=== PATIENT | male | born 1975 | race Caucasian/White ===

== ENCOUNTER 2016-12-18 10:22 | Inpatient (IN) | payer OTHER ==
[2016-12-18 11:43] VITALS: BMI 24.7
--- NOTE | 2016-12-18 13:40 | HP ---
CIWA Score - CIWA Score Nausea/Vomitin Muscle Tremors: 4-Moderate,w/Arms Extend Anxiety: 3 Agitation: 4-Moderately Restless Paroxysmal Sweats: No Perspiration Orientation: 0-Oriented Tacttile Disturbances: 0-None Auditory Disturbances: 0-None Visual Disturbances: 0-None Headache: 2-Mild CIWA-Ar Total Score: 15 Admission ROS BHS - HPI Chief Complaint: I need help with my drinking. Allergies/Adverse Reactions: Allergies Allergy/AdvReac Type Severity Reaction Status Date / Time No Known Allergies Allergy Verified 12/18/16 13:00 History of Present Illness: pt is a 41yr old male with a history of alcohol dependence seeking detox for treatment. Exam Limitations: Language Barrier (can understand little icelandic and can manage ) - Ebola screening Have you traveled outside of the country in the last 21 days: No Have you had contact with anyone from an Ebola affected area: No Have you been sick,other than usual withdrawal symptoms: No Do you have a fever: No - Review of Systems Constitutional: Chills, Diaphoresis, Loss of Appetite, Night Sweats EENT: reports: No Symptoms Reported Respiratory: reports: No Symptoms reported Cardiac: reports: Lightheadedness GI: reports: Nausea, Poor Appetite, Poor Fluid Intake : reports: No Symptoms Reported Musculoskeletal: reports: No Symptoms Reported Integumentary: reports: Flushing, Sweating Neuro: reports: Headache, Tingling, Tremors Endocrine: reports: Excessive Sweating, Flushing, Intolerance to Cold, Intolerance to Heat Hematology: reports: No Symptoms Reported Psychiatric: reports: Judgement Intact, Mood/Affect Appropiate, Orientated x3, Agitated, Anxious Other Systems: Reviewed and Negative Patient History - Patient Medical History Hx Anemia: No Hx Asthma: No Hx Chronic Obstructive Pulmonary Disease (COPD): No Hx Cancer: No Hx Cardiac Disorders: No Hx Congestive Heart Failure: No Hx Hypertension: No Hx Hypercholesterolemia: No Hx Pacemaker: No HX Cerebrovascular Accident: No Hx Seizures: No Hx Dementia: No Hx Diabetes: No Hx Gastrointestinal Disorders: No Hx Liver Disease: No Hx Genitourinary Disorders: No Hx Sexually Transmitted Disorders: No Hx Renal Disease (ESRD): No Hx Thyroid Disease: No Hx Human Immunodeficiency Virus (HIV): No (NEGATIVE HX) Hx Hepatitis C: No Hx Depression: No Hx Suicide Attempt: No (denies) Hx Bipolar Disorder: No Hx Schizophrenia: No - Patient Surgical History Past Surgical History: Yes Hx Neurologic Surgery: No Hx Cataract Extraction: No Hx Cardiac Surgery: No Hx Lung Surgery: No Hx Breast Surgery: No Hx Breast Biopsy: No Hx Abdominal Surgery: No Hx Appendectomy: No Hx Cholecystectomy: No Hx Genitourinary Surgery: No Hx Section: No Hx Orthopedic Surgery: No Other Surgical History: removal of cyst, back of neck - PPD History Previous Implant?: Yes Documented Results: Negative w/proof Implanted On Prior [facility] Admission?: Yes Date: 01/20/16 Results: 0 mm PPD to be Administered?: No - Reproductive History Patient is a Female of Child Bearing Age (11 -55 yrs old): No - Smoking Cessation Smoking history: Current every day smoker Have you smoked in the past 12 months: Yes Aproximately how many cigarettes per day: 20 Hx Chewing Tobacco Use: No Initiated information on smoking cessation: Yes 'Breaking Loose' booklet given: 12/18/16 - Substance & Tx. History Hx Alcohol Use: Yes Substance Use Type: Alcohol Hx Substance Use Treatment: Yes - Substances Abused Alcohol-beer Route: Inhalation Frequency: Daily Amount used: 2-6 pks. Age of first use: 20 Date of Last Use: 12/18/16 Family Disease History - Family Disease History Family History: Denies Admission Physical Exam [facility] - Vital Signs Vital Signs: Vital Signs - 24 hr 12/18/16 11:40 Temperature 98.6 F Pulse Rate 102 H Respiratory 18 Rate Blood Pressure 152/88 - Physical General Appearance: Yes: Appropriately Dressed, Moderate Distress, Tremorous, Irritable, Sweating, Anxious HEENTM: Yes: Hearing grossly Normal, Nasal Congestion Respiratory: Yes: Lungs Clear, Normal Breath Sounds, No Respiratory Distress Neck: Yes: No masses,lesions,Nodules Breast: Yes: Within Normal Limits Cardiology: Yes: Regular Rhythm, Regular Rate, S1, S2 Abdominal: Yes: Normal Bowel Sounds, Non Tender, Soft Genitourinary: Yes: Within Normal Limits Back: Yes: Normal Inspection Musculoskeletal: Yes: Within Normal Limits Extremities: Yes: Normal Capillary Refill Neurological: Yes: Fully Oriented, Alert, Normal Response Integumentary: Yes: Diaphoresis Lymphatic: Yes: Within Normal Limits - Diagnostic (1) Alcohol dependence with uncomplicated withdrawal Current Visit: Yes Status: Chronic Cleared for Admission [facility] - Detox or Rehab [facility] Level of Care: Medically Managed Detox Regimen/Protocol: Librium [facility] Breath Alcohol Content Breath Alcohol Content: 0.228 Urine Drug Screen - Results Drug Screen Negative: Yes
[2016-12-18] MEDS ORDERED: P-EPHED 60MG/TRIPROLIDI 2.5MG TABLET PO PRN (13:42)
[2016-12-18] MEDS ORDERED: ACETAMINOPHEN 325 MG TABLET (FP) PO PRN (13:42)
[2016-12-18] MEDS ORDERED: NICOTINE POLACRILEX 4 MG GUM BC PRN (13:42)
[2016-12-18] MEDS ORDERED: MENTHOL/PHENOL 1 EACH UD MM PRN (13:42)
[2016-12-18] MEDS ORDERED: MAG HYDROX/AL HYDROX/SIMETH 30 ML UNIT-DOSE CUP PO PRN (13:42)
[2016-12-18] MEDS ORDERED: IBUPROFEN 400 MG TABLET (FP) PO PRN (13:42)
[2016-12-18] MEDS ORDERED: MAGNESIUM CITRATE 300 ML BOTTLE PO PRN (13:42)
[2016-12-18] MEDS ORDERED: MAGNESIUM HYDROX 2400MG/30ML ORAL SUSPENSION 30 ML CUP PO PRN (13:42)
[2016-12-18] MEDS ORDERED: guaiFENesin/D-METHORPHAN HB 10 ML UNIT-DOSE CUPS PO PRN (13:42)
[2016-12-18] MEDS ORDERED: LOPERAMIDE HCL 2 MG CAPSULE PO PRN (13:42)
[2016-12-18] MEDS ORDERED: chlordiazePOXIDE HCL 25 MG CAPSULE PO ONE (14:30)
[2016-12-18] MEDS: chlordiazePOXIDE HCL 25 MG CAPSULE PO SCH ×2 (17:35→22:20)
[2016-12-18 21:13] LABS: URINE APPEARANCE CLEAR; URINE BILIRUBIN NEGATIVE (NEGATIVE); URINE COLOR YELLOW; URINE GLUCOSE (UA) NEGATIVE (NEGATIVE); URINE KETONE TRACE (NEGATIVE); URINE LEUK ESTERASE NEGATIVE (NEGATIVE); URINE NITRITE NEGATIVE (NEGATIVE); URINE PROTEIN NEGATIVE (NEGATIVE); URINE UROBILINOGEN NEGATIVE E.U./dl (0.2-1.0)
[2016-12-18 21:36] LABS: URINE BLOOD 1+ (NEGATIVE)
[2016-12-18 21:39] LABS: URINE MUCUS RARE; URINE RBC <1 /hpf (0-3)
[2016-12-18] MEDS: THIAMINE HCL 100 MG TABLET (FP) PO SCH (22:21)
[2016-12-18] MEDS: diphenhydrAMINE HCL 50 MG CAPSULE PO PRN (22:21)
[2016-12-19] MEDS: chlordiazePOXIDE HCL 25 MG CAPSULE PO SCH ×4 (04:10→22:26)
[2016-12-19] MEDS: hydrOXYzine PAMOATE 50 MG CAPSULE (FP) PO PRN ×2 (05:57→14:21)
[2016-12-19 10:11] LABS: MCH 30.4 pg (25.7-33.7); MCHC 34.2 g/dl (32.0-35.9); MEAN CELL VOLUME 88.9 fl (80-96); PLATELET COUNT 152 K/MM3 (134-434); RDW 13.9 % (11.9-15.9); WHITE BLOOD COUNT 10.2 K/mm3 (4.0-10.0)
[2016-12-19] MEDS: PRENATAL VITAMINS W/ FOLIC ACID TABLET (FP) PO SCH (10:37)
[2016-12-19] MEDS: NICOTINE 21 MG/24 HOURS TOPICAL PATCH TD SCH (10:38)
[2016-12-19 11:08] LABS: ANION GAP 17 (8-16); CALCIUM 8.6 mg/dL (8.5-10.1); CO2 27 mmol/L (21-32); COCKROFT - GAULT 118; CREATININE 0.8 mg/dL (0.7-1.3); GLUCOSE,RANDOM 98 mg/dL (74-106); TOT PROT 7.1 g/dl (6.4-8.2)
[2016-12-19 11:09] LABS: ALK PHOS 77 U/L (45-117); BILIRUBIN,TOTAL 1.1 mg/dL (0.2-1.0); SGOT/AST 92 U/L (15-37); SGPT/ALT 74 U/L (12-78)
--- NOTE | 2016-12-19 11:46 | EKG ---
Test Reason : Blood Pressure : / mmHG Vent. Rate : 093 BPM Atrial Rate : 093 BPM P-R Int : 126 ms QRS Dur : 096 ms QT Int : 348 ms P-R-T Axes : 074 091 042 degrees QTc Int : 432 ms NORMAL SINUS RHYTHM RIGHTWARD AXIS BORDERLINE ECG NO PREVIOUS ECGS AVAILABLE Confirmed by ESTELA MATA, JANELL ([id number]) on 12/19/2016 11:45:37 AM Referred By: Confirmed By:JANELL PALMER MD
--- NOTE | 2016-12-19 11:53 | PN ---
[facility] CIWA - CIWA Score Nausea/Vomitin Muscle Tremors: 3 Anxiety: 3 Agitation: 3 Paroxysmal Sweats: 1-Minimal Palms Moist Orientation: 0-Oriented Tacttile Disturbances: 1-Very Mild Itch/Numbness Auditory Disturbances: 1-Very Mild Visual Disturbances: 1-Very Mild Sensitivity Headache: 2-Mild CIWA-Ar Total Score: 18 S Progress Note (SOAP) Subjective: ALERT,IRRITABLE,ANXIOUS,INTERRUPTED SLEEP,TREMOR Objective: 12/19/16 11:50 Vital Signs Temperature 99.0 F 12/19/16 10:18 Pulse Rate 106 H 12/19/16 10:18 Respiratory Rate 18 12/19/16 10:18 Blood Pressure 141/94 12/19/16 10:18 O2 Sat by Pulse Oximetry (%) EKG NSR NO CHEST PAIN,NO SOB,NO DIZZINESS Laboratory Last Values WBC 10.2 K/mm3 (4.0-10.0) H D 12/19/16 06:00 RBC 5.82 M/mm3 (4.00-5.60) H 12/19/16 06:00 Hgb 17.7 GM/dL (11.7-16.9) H D 12/19/16 06:00 Hct 51.8 % (35.4-49) H 12/19/16 06:00 MCV 88.9 fl (80-96) 12/19/16 06:00 MCHC 34.2 g/dl (32.0-35.9) 12/19/16 06:00 RDW 13.9 % (11.9-15.9) 12/19/16 06:00 Plt Count 152 K/MM3 (134-434) D 12/19/16 06:00 MPV 8.0 fl (7.5-11.1) 12/19/16 06:00 Sodium 132 mmol/L (136-145) L 12/19/16 06:00 Potassium 3.7 mmol/L (3.5-5.1) 12/19/16 06:00 Chloride 88 mmol/L (98-107) L 12/19/16 06:00 Carbon Dioxide 27 mmol/L (21-32) 12/19/16 06:00 Anion Gap 17 (8-16) H 12/19/16 06:00 BUN 11 mg/dL (7-18) D 12/19/16 06:00 Creatinine 0.8 mg/dL (0.7-1.3) 12/19/16 06:00 Creat Clearance w eGFR > 60 (>60) 12/19/16 06:00 Random Glucose 98 mg/dL (74-106) 12/19/16 06:00 Calcium 8.6 mg/dL (8.5-10.1) 12/19/16 06:00 Total Bilirubin 1.1 mg/dL (0.2-1.0) H D 12/19/16 06:00 AST 92 U/L (15-37) H 12/19/16 06:00 ALT 74 U/L (12-78) 12/19/16 06:00 Alkaline Phosphatase 77 U/L (45-117) D 12/19/16 06:00 Total Protein 7.1 g/dl (6.4-8.2) 12/19/16 06:00 Albumin 4.0 g/dl (3.4-5.0) 12/19/16 06:00 Urine Color Yellow 12/18/16 20:52 Urine Appearance Clear 12/18/16 20:52 Urine pH 6.0 (5.0-8.0) 12/18/16 20:52 Ur Specific [place] 1.010 (1.005-1.025) 12/18/16 20:52 Urine Protein Negative (NEGATIVE) 12/18/16 20:52 Urine Glucose (UA) Negative (NEGATIVE) 12/18/16 20:52 Urine Ketones Trace (NEGATIVE) H 12/18/16 20:52 Urine Blood 1+ (NEGATIVE) H 12/18/16 20:52 Urine Nitrite Negative (NEGATIVE) 12/18/16 20:52 Urine Bilirubin Negative (NEGATIVE) 12/18/16 20:52 Urine Urobilinogen Negative E.U./dl (0.2-1.0) 12/18/16 20:52 Ur Leukocyte Esterase Negative (NEGATIVE) 12/18/16 20:52 Urine RBC <1 /hpf (0-3) 12/18/16 20:52 Urine WBC None /hpf (3-5) 12/18/16 20:52 Urine Mucus Rare 12/18/16 20:52 RPR Titer Nonreactive (NONREACTIVE) 12/19/16 06:00 Assessment: 12/19/16 11:52 WITHDRAWAL SYMPTOM Plan: CONTINUE DETOX,ENCOURAGE ORAL FLUID
[2016-12-19] MEDS: chlordiazePOXIDE HCL 25 MG CAPSULE PO PRN (15:01)
--- NOTE | 2016-12-19 18:33 | DS ---
[facility] Detox Discharge Summary Admission Date: 12/18/16 Discharge Date: 12/19/16 - History Present History: Alcohol Dependence - Physical Exam Results Vital Signs: Vital Signs Temperature 97.9 F 12/19/16 17:51 Pulse Rate 88 12/19/16 17:51 Respiratory Rate 20 12/19/16 17:51 Blood Pressure 126/76 12/19/16 17:51 O2 Sat by Pulse Oximetry (%) - Treatment Hospital Course: Detox Protocol Followed, Responded well - Medication Discharge Medications: Ambulatory Orders NK [No Known Home Medication] 01/18/16 - AMA Did Patient Leave Against Medical Advice: Yes
[2016-12-19] MEDS: THIAMINE HCL 100 MG TABLET (FP) PO SCH (22:26)
[2016-12-19] MEDS: diphenhydrAMINE HCL 50 MG CAPSULE PO PRN (22:26)
[2016-12-20] MEDS: diphenhydrAMINE HCL 50 MG CAPSULE PO PRN ×2 (02:07→22:03)
[2016-12-20] MEDS: chlordiazePOXIDE HCL 25 MG CAPSULE PO PRN (02:08)
[2016-12-20] MEDS: chlordiazePOXIDE HCL 25 MG CAPSULE PO SCH ×2 (05:28→09:59)
[2016-12-20] MEDS: NICOTINE 21 MG/24 HOURS TOPICAL PATCH TD SCH (09:59)
[2016-12-20] MEDS: PRENATAL VITAMINS W/ FOLIC ACID TABLET (FP) PO SCH (09:59)
--- NOTE | 2016-12-20 11:15 | PN ---
S CIWA - CIWA Score Nausea/Vomitin Muscle Tremors: 4-Moderate,w/Arms Extend Anxiety: 3 Agitation: 3 Paroxysmal Sweats: 3 Orientation: 0-Oriented Tacttile Disturbances: 2-Mild Itch/Numbness/Burn Auditory Disturbances: 0-None Visual Disturbances: 0-None Headache: 0-None Present CIWA-Ar Total Score: 18 S Progress Note (SOAP) Subjective: interrupted sleep, sweats, shakes + Objective: 12/20/16 11:05 Vital Signs Temperature 97.9 F 12/20/16 10:35 Pulse Rate 90 12/20/16 10:35 Respiratory Rate 18 12/20/16 10:35 Blood Pressure 150/90 12/20/16 10:35 O2 Sat by Pulse Oximetry (%) Laboratory Tests 12/18/16 12/19/16 12/19/16 20:52 06:00 06:00 WBC 10.2 H D RBC 5.82 H Hgb 17.7 H D Hct 51.8 H MCV 88.9 MCHC 34.2 RDW 13.9 Plt Count 152 D MPV 8.0 Sodium 132 L Potassium 3.7 Chloride 88 L Carbon Dioxide 27 Anion Gap 17 H BUN 11 D Creatinine 0.8 Creat Clearance w eGFR > 60 Random Glucose 98 Calcium 8.6 Total Bilirubin 1.1 H D AST 92 H ALT 74 Alkaline Phosphatase 77 D Total Protein 7.1 Albumin 4.0 Urine Color Yellow Urine Appearance Clear Urine pH 6.0 Ur Specific [place] 1.010 Urine Protein Negative Urine Glucose (UA) Negative Urine Ketones Trace H Urine Blood 1+ H Urine Nitrite Negative Urine Bilirubin Negative Urine Urobilinogen Negative Ur Leukocyte Esterase Negative Urine RBC <1 Urine WBC None Urine Mucus Rare RPR Titer 12/19/16 06:00 WBC RBC Hgb Hct MCV MCHC RDW Plt Count MPV Sodium Potassium Chloride Carbon Dioxide Anion Gap BUN Creatinine Creat Clearance w eGFR Random Glucose Calcium Total Bilirubin AST ALT Alkaline Phosphatase Total Protein Albumin Urine Color Urine Appearance Urine pH Ur Specific [place] Urine Protein Urine Glucose (UA) Urine Ketones Urine Blood Urine Nitrite Urine Bilirubin Urine Urobilinogen Ur Leukocyte Esterase Urine RBC Urine WBC Urine Mucus RPR Titer Nonreactive pt aox3 , but tremulous Assessment: 12/20/16 11:06 withdrawal sx's Plan: cont. detox increase fluids librium prn [id number] tid/prn
[2016-12-20] MEDS: chlordiazePOXIDE 5 MG CAPSULE PO SCH ×2 (17:21→22:03)
[2016-12-20] MEDS: THIAMINE HCL 100 MG TABLET (FP) PO SCH (22:03)
[2016-12-21] MEDS: diphenhydrAMINE HCL 50 MG CAPSULE PO PRN ×2 (01:49→22:24)
[2016-12-21] MEDS: chlordiazePOXIDE HCL 25 MG CAPSULE PO PRN (01:50)
[2016-12-21] MEDS: chlordiazePOXIDE 5 MG CAPSULE PO SCH ×2 (06:06→10:37)
[2016-12-21] MEDS: PRENATAL VITAMINS W/ FOLIC ACID TABLET (FP) PO SCH (10:37)
[2016-12-21] MEDS: NICOTINE 21 MG/24 HOURS TOPICAL PATCH TD SCH (10:38)
--- NOTE | 2016-12-21 11:54 | PN ---
BHS Progress Note (SOAP) Subjective: sweats Objective: 12/21/16 11:50 Vital Signs Temperature 98.4 F 12/21/16 09:47 Pulse Rate 103 H 12/21/16 09:47 Respiratory Rate 20 12/21/16 09:47 Blood Pressure 129/74 12/21/16 09:47 O2 Sat by Pulse Oximetry (%) awake/alert ambulating no acute distress Assessment: 12/21/16 11:53 withdrawal sx Plan: continue detox increase fluids d/c in am
[2016-12-21] MEDS: chlordiazePOXIDE HCL 10 MG CAPSULE PO SCH ×2 (17:42→22:24)
[2016-12-21] MEDS: THIAMINE HCL 100 MG TABLET (FP) PO SCH (22:24)
[2016-12-22] MEDS: chlordiazePOXIDE HCL 10 MG CAPSULE PO SCH (06:08)
[2016-12-22 06:50] VITALS: BP 121/63; PULSE 74; TEMP 97.9
--- NOTE | 2016-12-22 11:24 | DS ---
[facility] Detox Discharge Summary Admission Date: 12/18/16 Discharge Date: 12/22/16 - History Present History: Alcohol Dependence Additional Comments: ADVISED PATIENT TO FOLLOW-UP WITH DRILLING ASSISTANT AFTER DISCHARGE FROM DETOX FOR GENERAL MEDICAL ASSESSMENT. - Physical Exam Results Vital Signs: Vital Signs Temperature 97.9 F 12/22/16 06:00 Pulse Rate 74 12/22/16 06:00 Respiratory Rate 18 12/22/16 06:00 Blood Pressure 121/63 12/22/16 06:00 O2 Sat by Pulse Oximetry (%) Pertinent Admission Physical Exam Findings: WITHDRAWAL SYMPTOMS. Laboratory Tests 12/18/16 12/19/16 12/19/16 20:52 06:00 06:00 WBC 10.2 H D RBC 5.82 H Hgb 17.7 H D Hct 51.8 H MCV 88.9 MCHC 34.2 RDW 13.9 Plt Count 152 D MPV 8.0 Sodium 132 L Potassium 3.7 Chloride 88 L Carbon Dioxide 27 Anion Gap 17 H BUN 11 D Creatinine 0.8 Creat Clearance w eGFR > 60 Random Glucose 98 Calcium 8.6 Total Bilirubin 1.1 H D AST 92 H ALT 74 Alkaline Phosphatase 77 D Total Protein 7.1 Albumin 4.0 Urine Color Yellow Urine Appearance Clear Urine pH 6.0 Ur Specific [place] 1.010 Urine Protein Negative Urine Glucose (UA) Negative Urine Ketones Trace H Urine Blood 1+ H Urine Nitrite Negative Urine Bilirubin Negative Urine Urobilinogen Negative Ur Leukocyte Esterase Negative Urine RBC <1 Urine WBC None Urine Mucus Rare RPR Titer 12/19/16 06:00 WBC RBC Hgb Hct MCV MCHC RDW Plt Count MPV Sodium Potassium Chloride Carbon Dioxide Anion Gap BUN Creatinine Creat Clearance w eGFR Random Glucose Calcium Total Bilirubin AST ALT Alkaline Phosphatase Total Protein Albumin Urine Color Urine Appearance Urine pH Ur Specific [place] Urine Protein Urine Glucose (UA) Urine Ketones Urine Blood Urine Nitrite Urine Bilirubin Urine Urobilinogen Ur Leukocyte Esterase Urine RBC Urine WBC Urine Mucus RPR Titer Nonreactive LABS NOTED. - Treatment Hospital Course: Detox Protocol Followed, Detoxed Safely, Responded well, Discharged Condition Good Patient has Accepted a Rehab Referral to: PT. ELECTING TO GO HOME. 12-STEP / AA OUTPATIENT PROGRAMS RECOMMENDED. - Medication Discharge Medications: Ambulatory Orders NK [No Known Home Medication] 01/18/16 - Diagnosis (1) Alcohol dependence with uncomplicated withdrawal Status: Acute - AMA Did Patient Leave Against Medical Advice: No
== END 2016-12-22 09:15 | disposition home or self-care (01) | DRG 775 ==
LOC: YASAS 10:22 → Y6N 13:51
PROVIDERS: ADMIT Internal Medicine; ATTEND Internal Medicine
PROC: HZ2ZZZZ Detoxification Services for Substance Abuse Treatment (ICD-10-PCS; principal; 2016-12-18)
DX: F10.230 Alcohol dependence with withdrawal, uncomplicated (principal); F17.210 Nicotine dependence, cigarettes, uncomplicated
CPT/HCPCS: 36415; 80053; 81003; 81015; 85027; 86593; 93005; 93010

== ENCOUNTER 2017-02-19 14:33 | Inpatient (IN) | payer OTHER ==
[2017-02-19 18:45] VITALS: BMI 24.2
--- NOTE | 2017-02-19 20:56 | HP ---
CIWA Score - CIWA Score Nausea/Vomitin Muscle Tremors: 3 Anxiety: 3 Agitation: 3 Paroxysmal Sweats: 2 Orientation: 0-Oriented Tacttile Disturbances: 2-Mild Itch/Numbness/Burn Auditory Disturbances: 2-Mild Harshness/Frighten Visual Disturbances: 2-Mild Sensitivity Headache: 2-Mild CIWA-Ar Total Score: 22 Admission ROS BHS - HPI Chief Complaint: i need help to stop drinking alcohol Allergies/Adverse Reactions: Allergies Allergy/AdvReac Type Severity Reaction Status Date / Time No Known Allergies Allergy Verified 02/19/17 19:28 History of Present Illness: this 41 years old male with alcohol dependence,seeking detox,last treatment [facility] 12/18/16 to 12/22/16 syncope nicotine dependence no significant period of sobriety Exam Limitations: No Limitations - Ebola screening Have you traveled outside of the country in the last 21 days: No Have you had contact with anyone from an Ebola affected area: No Have you been sick,other than usual withdrawal symptoms: No - Review of Systems Constitutional: Loss of Appetite, Malaise, Night Sweats, Changes in sleep, Weakness EENT: reports: Nose Congestion Respiratory: reports: No Symptoms reported Cardiac: reports: Palpitations GI: reports: Nausea, Vomiting, Abdominal cramping : reports: No Symptoms Reported Musculoskeletal: reports: Back Pain, Muscle Pain Integumentary: reports: Dryness Endocrine: reports: No Symptoms Reported Hematology: reports: No Symptoms Reported Psychiatric: reports: No Sypmtoms Reported, Judgement Intact, Mood/Affect Appropiate, Orientated x3 Patient History - Patient Medical History Hx Anemia: No Hx Asthma: No Hx Chronic Obstructive Pulmonary Disease (COPD): No Hx Cancer: No Hx Cardiac Disorders: No Hx Congestive Heart Failure: No Hx Hypertension: No Hx Hypercholesterolemia: No Hx Pacemaker: No HX Cerebrovascular Accident: No Hx Seizures: No Hx Dementia: No Hx Diabetes: No Hx Gastrointestinal Disorders: No Hx Liver Disease: No Hx Genitourinary Disorders: No Hx Sexually Transmitted Disorders: No Hx Renal Disease (ESRD): No Hx Thyroid Disease: No Hx Human Immunodeficiency Virus (HIV): No (NEGATIVE HX) Hx Hepatitis C: No Hx Depression: No Hx Suicide Attempt: No (denies) Hx Bipolar Disorder: No Hx Schizophrenia: No Other Medical History: no suiidal,no homicidal - Patient Surgical History Past Surgical History: Yes Hx Neurologic Surgery: No Hx Cataract Extraction: No Hx Cardiac Surgery: No Hx Lung Surgery: No Hx Breast Surgery: No Hx Breast Biopsy: No Hx Abdominal Surgery: No Hx Appendectomy: No Hx Cholecystectomy: No Hx Genitourinary Surgery: No Hx Section: No Hx Orthopedic Surgery: No Other Surgical History: removal of cyst, back of neck - PPD History Previous Implant?: Yes Documented Results: Negative w/proof Date: 01/20/16 Results: 0 mm PPD to be Administered?: Yes - Smoking Cessation Smoking history: Current every day smoker Have you smoked in the past 12 months: Yes Aproximately how many cigarettes per day: 10 Hx Chewing Tobacco Use: No Initiated information on smoking cessation: Yes 'Breaking Loose' booklet given: 02/19/17 - Substance & Tx. History Hx Alcohol Use: Yes Hx Substance Use: No Substance Use Type: Alcohol Hx Substance Use Treatment: Yes ([facility] 12/18/16 to 12/22/16) - Substances Abused Alcohol Route: Oral Frequency: Daily Amount used: BEER- 2 SIX PACKS Age of first use: 19 Date of Last Use: 02/19/17 Family Disease History - Family Disease History Family History: Denies Admission Physical Exam [facility] - Vital Signs Vital Signs: Vital Signs - 24 hr 02/19/17 18:42 Temperature 97.5 F L Pulse Rate 97 H Respiratory 18 Rate Blood Pressure 136/89 - Physical General Appearance: Yes: Moderate Distress, Tremorous, Irritable, Sweating, Anxious HEENTM: Yes: Normal ENT Inspection, Normocephalic, JEN, Pharynx Normal Respiratory: Yes: Lungs Clear, Normal Breath Sounds, No Respiratory Distress Neck: Yes: Within Normal Limits, Supple, Trachea in good position Breast: Yes: Within Normal Limits Cardiology: Yes: Within Normal Limits, Regular Rhythm, Regular Rate, S1, S2 Abdominal: Yes: Within Normal Limits, Normal Bowel Sounds, Non Tender, Flat, Soft Genitourinary: Yes: Within Normal Limits Back: Yes: Within Normal Limits Musculoskeletal: Yes: Back pain, Muscle Pain Extremities: Yes: Tremors Neurological: Yes: environmental planner II-XII NML intact, Fully Oriented, Alert, Motor Strength 5/5 Integumentary: Yes: Dry Lymphatic: Yes: Within Normal Limits - Diagnostic (1) Alcohol dependence with uncomplicated withdrawal Status: Acute (2) Alcohol dependence with uncomplicated intoxication Status: Acute (3) Nicotine dependence Status: Acute Qualifiers: Nicotine product type: cigarettes Substance use status: in withdrawal Qualified Code(s): F17.213 - Nicotine dependence, cigarettes, with withdrawal Cleared for Admission [facility] - Detox or Rehab [facility] Level of Care: Medically Managed Detox Regimen/Protocol: Librium [facility] Breath Alcohol Content Breath Alcohol Content: 0.348 Urine Drug Screen - Results Drug Screen Negative: Yes
[2017-02-19] MEDS ORDERED: LOPERAMIDE HCL 2 MG CAPSULE PO PRN (21:08)
[2017-02-19] MEDS ORDERED: P-EPHED 60MG/TRIPROLIDI 2.5MG TABLET PO PRN (21:08)
[2017-02-19] MEDS ORDERED: MAG HYDROX/AL HYDROX/SIMETH 30 ML UNIT-DOSE CUP PO PRN (21:08)
[2017-02-19] MEDS ORDERED: ACETAMINOPHEN 325 MG TABLET (FP) PO PRN (21:08)
[2017-02-19] MEDS ORDERED: guaiFENesin/D-METHORPHAN HB 10 ML UNIT-DOSE CUPS PO PRN (21:08)
[2017-02-19] MEDS ORDERED: MENTHOL/PHENOL 1 EACH UD MM PRN (21:08)
[2017-02-19] MEDS ORDERED: MAGNESIUM HYDROX 2400MG/30ML ORAL SUSPENSION 30 ML CUP PO PRN (21:08)
[2017-02-19] MEDS ORDERED: hydrOXYzine PAMOATE 50 MG CAPSULE (FP) PO PRN (21:08)
[2017-02-19] MEDS ORDERED: IBUPROFEN 400 MG TABLET (FP) PO PRN (21:08)
[2017-02-19] MEDS ORDERED: MAGNESIUM CITRATE 300 ML BOTTLE PO PRN (21:08)
[2017-02-19] MEDS: THIAMINE HCL 100 MG TABLET (FP) PO SCH (21:51)
[2017-02-19] MEDS: diphenhydrAMINE HCL 50 MG CAPSULE PO PRN (21:59)
[2017-02-19] MEDS: chlordiazePOXIDE HCL 25 MG CAPSULE PO SCH (21:59)
[2017-02-20] MEDS ORDERED: diphenhydrAMINE HCL 25 MG CAPSULE (FP) PO ONE (00:31)
[2017-02-20] MEDS: chlordiazePOXIDE HCL 25 MG CAPSULE PO PRN ×2 (00:32→13:22)
[2017-02-20] MEDS: diphenhydrAMINE HCL 50 MG CAPSULE PO PRN ×3 (00:33→22:14)
[2017-02-20] MEDS: chlordiazePOXIDE HCL 25 MG CAPSULE PO SCH ×4 (06:02→22:14)
--- NOTE | 2017-02-20 10:06 | PN ---
[facility] CIWA - CIWA Score Nausea/Vomitin-No Nausea/No Vomiting Muscle Tremors: 4-Moderate,w/Arms Extend Anxiety: 4-Mod. Anxious/Guarded Agitation: 4-Moderately Restless Paroxysmal Sweats: 1-Minimal Palms Moist Orientation: 0-Oriented Tacttile Disturbances: 3-Moderate Itch/Numb/Burn Auditory Disturbances: 0-None Visual Disturbances: 0-None Headache: 0-None Present CIWA-Ar Total Score: 16 BHS Progress Note (SOAP) Subjective: ANXIETY,TREMORS,SWEATS Objective: 02/20/17 10:06 Vital Signs Temperature 98.1 F 02/20/17 09:23 Pulse Rate 82 02/20/17 09:23 Respiratory Rate 18 02/20/17 09:23 Blood Pressure 119/71 02/20/17 09:23 O2 Sat by Pulse Oximetry (%) LABS PENDING Assessment: 02/20/17 10:06 WITHDRAWAL SX Plan: CONTINUE DETOX
[2017-02-20] MEDS: PRENATAL VITAMINS W/ FOLIC ACID TABLET (FP) PO SCH (10:10)
[2017-02-20 10:35] LABS: MCH 30.6 pg (25.7-33.7); MCHC 34.3 g/dl (32.0-35.9); MEAN CELL VOLUME 89.4 fl (80-96); MEAN PLT VOLUME 7.3 fl (7.5-11.1); PLATELET COUNT 143 K/MM3 (134-434); RDW 13.5 % (11.9-15.9); WHITE BLOOD COUNT 5.7 K/mm3 (4.0-10.0)
[2017-02-20 10:46] LABS: ALBUMIN 3.7 g/dl (3.4-5.0); ANION GAP 9 (8-16); CALCIUM 8.4 mg/dL (8.5-10.1); CO2 30 mmol/L (21-32); GLUCOSE,RANDOM 75 mg/dL (74-106); SGOT/AST 54 U/L (15-37); SGPT/ALT 47 U/L (12-78)
[2017-02-20 10:48] LABS: ALK PHOS 84 U/L (45-117); BILIRUBIN,TOTAL 0.8 mg/dL (0.2-1.0); CREATININE 0.8 mg/dL (0.7-1.3); TOT PROT 6.3 g/dl (6.4-8.2)
[2017-02-20 17:11] LABS: URINE APPEARANCE CLEAR; URINE BILIRUBIN NEGATIVE (NEGATIVE); URINE BLOOD NEGATIVE (NEGATIVE); URINE COLOR YELLOW; URINE GLUCOSE (UA) NEGATIVE (NEGATIVE); URINE KETONE TRACE (NEGATIVE); URINE LEUK ESTERASE NEGATIVE (NEGATIVE); URINE NITRITE NEGATIVE (NEGATIVE); URINE PROTEIN NEGATIVE (NEGATIVE); URINE UROBILINOGEN 4.0 E.U/dl mg/dL (0.2-1.0)
--- NOTE | 2017-02-20 21:56 | EKG ---
Test Reason : Blood Pressure : / mmHG Vent. Rate : 094 BPM Atrial Rate : 094 BPM P-R Int : 132 ms QRS Dur : 102 ms QT Int : 352 ms P-R-T Axes : 059 095 045 degrees QTc Int : 440 ms NORMAL SINUS RHYTHM RIGHTWARD AXIS BORDERLINE ECG WHEN COMPARED WITH ECG OF 18-DEC-2016 13:45, NO SIGNIFICANT CHANGE WAS FOUND CL Confirmed by JAZZMINE GLORIA MD ([id number]) on 02/20/2017 9:56:32 PM Referred By: Confirmed By:JAZZMINE GLORIA MD
[2017-02-20] MEDS: THIAMINE HCL 100 MG TABLET (FP) PO SCH (22:14)
[2017-02-21] MEDS: chlordiazePOXIDE HCL 25 MG CAPSULE PO SCH ×3 (05:05→17:29)
[2017-02-21] MEDS: PRENATAL VITAMINS W/ FOLIC ACID TABLET (FP) PO SCH (10:02)
--- NOTE | 2017-02-21 11:38 | PN ---
[facility] CIWA - CIWA Score Nausea/Vomitin-No Nausea/No Vomiting Muscle Tremors: 4-Moderate,w/Arms Extend Anxiety: 4-Mod. Anxious/Guarded Agitation: 4-Moderately Restless Paroxysmal Sweats: 1-Minimal Palms Moist Orientation: 0-Oriented Tacttile Disturbances: 3-Moderate Itch/Numb/Burn Auditory Disturbances: 0-None Visual Disturbances: 0-None Headache: 0-None Present CIWA-Ar Total Score: 16 BHS Progress Note (SOAP) Subjective: ANXIETY,SWEATS,SLIGHT TREMORS. Objective: 02/21/17 11:37 Vital Signs Temperature 98 F 02/21/17 09:23 Pulse Rate 62 02/21/17 09:23 Respiratory Rate 20 02/21/17 09:23 Blood Pressure 121/75 02/21/17 09:23 O2 Sat by Pulse Oximetry (%) Laboratory Last Values WBC 5.7 K/mm3 (4.0-10.0) D 02/20/17 07:30 RBC 4.96 M/mm3 (4.00-5.60) 02/20/17 07:30 Hgb 15.2 GM/dL (11.7-16.9) D 02/20/17 07:30 Hct 44.3 % (35.4-49) 02/20/17 07:30 MCV 89.4 fl (80-96) 02/20/17 07:30 MCH 30.6 pg (25.7-33.7) 02/20/17 07:30 MCHC 34.3 g/dl (32.0-35.9) 02/20/17 07:30 RDW 13.5 % (11.9-15.9) 02/20/17 07:30 Plt Count 143 K/MM3 (134-434) 02/20/17 07:30 MPV 7.3 fl (7.5-11.1) L 02/20/17 07:30 Sodium 140 mmol/L (136-145) 02/20/17 07:30 Potassium 3.7 mmol/L (3.5-5.1) 02/20/17 07:30 Chloride 101 mmol/L (98-107) D 02/20/17 07:30 Carbon Dioxide 30 mmol/L (21-32) 02/20/17 07:30 Anion Gap 9 (8-16) 02/20/17 07:30 BUN 10 mg/dL (7-18) 02/20/17 07:30 Creatinine 0.8 mg/dL (0.7-1.3) 02/20/17 07:30 Creat Clearance w eGFR > 60 (>60) 02/20/17 07:30 Random Glucose 75 mg/dL (74-106) D 02/20/17 07:30 Calcium 8.4 mg/dL (8.5-10.1) L 02/20/17 07:30 Total Bilirubin 0.8 mg/dL (0.2-1.0) D 02/20/17 07:30 AST 54 U/L (15-37) H D 02/20/17 07:30 ALT 47 U/L (12-78) D 02/20/17 07:30 Alkaline Phosphatase 84 U/L (45-117) 02/20/17 07:30 Total Protein 6.3 g/dl (6.4-8.2) L 02/20/17 07:30 Albumin 3.7 g/dl (3.4-5.0) 02/20/17 07:30 Urine Color Yellow 02/20/17 13:30 Urine Appearance Clear 02/20/17 13:30 Urine pH 7.0 (5.0-8.0) 02/20/17 13:30 Ur Specific [place] 1.020 (1.005-1.025) 02/20/17 13:30 Urine Protein Negative (NEGATIVE) 02/20/17 13:30 Urine Glucose (UA) Negative (NEGATIVE) 02/20/17 13:30 Urine Ketones Trace (NEGATIVE) H 02/20/17 13:30 Urine Blood Negative (NEGATIVE) 02/20/17 13:30 Urine Nitrite Negative (NEGATIVE) 02/20/17 13:30 Urine Bilirubin Negative (NEGATIVE) 02/20/17 13:30 Urine Urobilinogen 4.0 e.u/dl mg/dL (0.2-1.0) 02/20/17 13:30 Ur Leukocyte Esterase Negative (NEGATIVE) 02/20/17 13:30 RPR Titer Nonreactive (NONREACTIVE) 02/20/17 07:30 Assessment: 02/21/17 11:37 WITHDRAWAL SX Plan: CONTINUE DETOX
[2017-02-21] MEDS: THIAMINE HCL 100 MG TABLET (FP) PO SCH (22:06)
[2017-02-21] MEDS: chlordiazePOXIDE 5 MG CAPSULE PO SCH (22:06)
[2017-02-21] MEDS: diphenhydrAMINE HCL 50 MG CAPSULE PO PRN (23:39)
[2017-02-22] MEDS: chlordiazePOXIDE 5 MG CAPSULE PO SCH (05:05)
[2017-02-22 09:45] VITALS: BP 128/81; PULSE 72; TEMP 97.6
[2017-02-22] MEDS: PRENATAL VITAMINS W/ FOLIC ACID TABLET (FP) PO SCH (10:08)
[2017-02-22] MEDS ORDERED: chlordiazePOXIDE HCL 10 MG CAPSULE PO SCH ×2 (11:00→23:00)
--- NOTE | 2017-02-22 11:54 | DS ---
[facility] Detox Discharge Summary Admission Date: 02/19/17 Discharge Date: 02/22/17 - History Present History: Alcohol Dependence Additional Comments: DETOX COMPLETED.ALERT O X 3. NAD. Pertinent Past History: REMOVAL OF CYST BACK OF NECK - Physical Exam Results Vital Signs: Vital Signs Temperature 97.6 F 02/22/17 09:43 Pulse Rate 72 02/22/17 09:43 Respiratory Rate 16 02/22/17 09:43 Blood Pressure 128/81 02/22/17 09:43 O2 Sat by Pulse Oximetry (%) Pertinent Admission Physical Exam Findings: WITHDRAWAL SX Laboratory Last Values WBC 5.7 K/mm3 (4.0-10.0) D 02/20/17 07:30 RBC 4.96 M/mm3 (4.00-5.60) 02/20/17 07:30 Hgb 15.2 GM/dL (11.7-16.9) D 02/20/17 07:30 Hct 44.3 % (35.4-49) 02/20/17 07:30 MCV 89.4 fl (80-96) 02/20/17 07:30 MCH 30.6 pg (25.7-33.7) 02/20/17 07:30 MCHC 34.3 g/dl (32.0-35.9) 02/20/17 07:30 RDW 13.5 % (11.9-15.9) 02/20/17 07:30 Plt Count 143 K/MM3 (134-434) 02/20/17 07:30 MPV 7.3 fl (7.5-11.1) L 02/20/17 07:30 Sodium 140 mmol/L (136-145) 02/20/17 07:30 Potassium 3.7 mmol/L (3.5-5.1) 02/20/17 07:30 Chloride 101 mmol/L (98-107) D 02/20/17 07:30 Carbon Dioxide 30 mmol/L (21-32) 02/20/17 07:30 Anion Gap 9 (8-16) 02/20/17 07:30 BUN 10 mg/dL (7-18) 02/20/17 07:30 Creatinine 0.8 mg/dL (0.7-1.3) 02/20/17 07:30 Creat Clearance w eGFR > 60 (>60) 02/20/17 07:30 Random Glucose 75 mg/dL (74-106) D 02/20/17 07:30 Calcium 8.4 mg/dL (8.5-10.1) L 02/20/17 07:30 Total Bilirubin 0.8 mg/dL (0.2-1.0) D 02/20/17 07:30 AST 54 U/L (15-37) H D 02/20/17 07:30 ALT 47 U/L (12-78) D 02/20/17 07:30 Alkaline Phosphatase 84 U/L (45-117) 02/20/17 07:30 Total Protein 6.3 g/dl (6.4-8.2) L 02/20/17 07:30 Albumin 3.7 g/dl (3.4-5.0) 02/20/17 07:30 Urine Color Yellow 02/20/17 13:30 Urine Appearance Clear 02/20/17 13:30 Urine pH 7.0 (5.0-8.0) 02/20/17 13:30 Ur Specific [place] 1.020 (1.005-1.025) 02/20/17 13:30 Urine Protein Negative (NEGATIVE) 02/20/17 13:30 Urine Glucose (UA) Negative (NEGATIVE) 02/20/17 13:30 Urine Ketones Trace (NEGATIVE) H 02/20/17 13:30 Urine Blood Negative (NEGATIVE) 02/20/17 13:30 Urine Nitrite Negative (NEGATIVE) 02/20/17 13:30 Urine Bilirubin Negative (NEGATIVE) 02/20/17 13:30 Urine Urobilinogen 4.0 e.u/dl mg/dL (0.2-1.0) 02/20/17 13:30 Ur Leukocyte Esterase Negative (NEGATIVE) 02/20/17 13:30 RPR Titer Nonreactive (NONREACTIVE) 02/20/17 07:30 - Treatment Hospital Course: Detox Protocol Followed, Detoxed Safely, Responded well, Discharged Condition Good Patient has Accepted a Rehab Referral to: REFUSED BUT ENCOURAGED TO F/U AT [facility] - Medication Discharge Medications: Ambulatory Orders NK [No Known Home Medication] 01/18/16 - Diagnosis (1) Alcohol dependence with uncomplicated intoxication Current Visit: Yes Status: Acute (2) Nicotine dependence Current Visit: Yes Status: Acute Qualifiers: Nicotine product type: cigarettes Substance use status: in withdrawal Qualified Code(s): F17.213 - Nicotine dependence, cigarettes, with withdrawal (3) Alcohol dependence with uncomplicated withdrawal Current Visit: Yes Status: Acute - AMA Did Patient Leave Against Medical Advice: No
== END 2017-02-22 11:22 | disposition home or self-care (01) | DRG 775 ==
LOC: YASAS 14:33 → Y3N 20:01
PROVIDERS: ADMIT Internal Medicine; ATTEND Internal Medicine
PROC: HZ2ZZZZ Detoxification Services for Substance Abuse Treatment (ICD-10-PCS; principal; 2017-02-19)
DX: F10.230 Alcohol dependence with withdrawal, uncomplicated (principal); F17.213 Nicotine dependence, cigarettes, with withdrawal
CPT/HCPCS: 36415; 80053; 81003; 85027; 86593; 93005; 93010

== ENCOUNTER 2017-04-13 15:02 | Inpatient (IN) | payer MEDICARE ==
[2017-04-13 16:03] VITALS: BMI 24.2
--- NOTE | 2017-04-13 17:48 | HP ---
CIWA Score - CIWA Score Nausea/Vomitin Muscle Tremors: 5 Anxiety: 4-Mod. Anxious/Guarded Agitation: 4-Moderately Restless Paroxysmal Sweats: 2 Orientation: 1-Uncertain about Date Tacttile Disturbances: 0-None Auditory Disturbances: 0-None Visual Disturbances: 0-None Headache: 2-Mild CIWA-Ar Total Score: 20 Admission ROS BHS - HPI Chief Complaint: WITHDRAWAL SX Allergies/Adverse Reactions: Allergies Allergy/AdvReac Type Severity Reaction Status Date / Time No Known Allergies Allergy Verified 04/13/17 17:08 History of Present Illness: 41 YEARS OLD MALE WITH LONG HISTORY OF ALCOHOL NICOTINE DEPENDENCE, HAS GERD AND DEPRESSION IS ADMITTED TO DETOX Exam Limitations: No Limitations - Ebola screening Have you traveled outside of the country in the last 21 days: No Have you had contact with anyone from an Ebola affected area: No Have you been sick,other than usual withdrawal symptoms: No Do you have a fever: No - Review of Systems Constitutional: Changes in sleep, Weight Stable EENT: reports: No Symptoms Reported Respiratory: reports: No Symptoms reported Cardiac: reports: No Symptoms Reported GI: reports: Nausea, Poor Fluid Intake, Vomiting, Abdominal cramping : reports: No Symptoms Reported Musculoskeletal: reports: No Symptoms Reported Integumentary: reports: No Symptoms Reported Neuro: reports: Tremors Endocrine: reports: No Symptoms Reported Hematology: reports: No Symptoms Reported Psychiatric: reports: Judgement Intact, Depressed Other Systems: Reviewed and Negative Patient History - Patient Medical History Hx Anemia: No Hx Asthma: No Hx Chronic Obstructive Pulmonary Disease (COPD): No Hx Cancer: No Hx Cardiac Disorders: No Hx Congestive Heart Failure: No Hx Hypertension: No Hx Hypercholesterolemia: No Hx Pacemaker: No HX Cerebrovascular Accident: No Hx Seizures: No Hx Dementia: No Hx Diabetes: No Hx Gastrointestinal Disorders: No Hx Liver Disease: No Hx Genitourinary Disorders: No Hx Sexually Transmitted Disorders: No Hx Renal Disease (ESRD): No Hx Thyroid Disease: No Hx Human Immunodeficiency Virus (HIV): No (NEGATIVE HX) Hx Hepatitis C: No Hx Depression: Yes Hx Suicide Attempt: No Hx Bipolar Disorder: No Hx Schizophrenia: No - Patient Surgical History Past Surgical History: Yes Hx Neurologic Surgery: No Hx Cataract Extraction: No Hx Cardiac Surgery: No Hx Lung Surgery: No Hx Breast Surgery: No Hx Breast Biopsy: No Hx Abdominal Surgery: No Hx Appendectomy: No Hx Cholecystectomy: No Hx Genitourinary Surgery: No Hx Orthopedic Surgery: No Other Surgical History: removal of cyst, back of neck Anesthesia Reaction: No - PPD History Previous Implant?: Yes Documented Results: Negative w/o proof Implanted On Prior [facility] Admission?: Yes Date: 01/20/16 Results: 0 mm PPD to be Administered?: Yes - Smoking Cessation Smoking history: Current every day smoker Have you smoked in the past 12 months: Yes Aproximately how many cigarettes per day: 10 Cigars Per Day: 0 Hx Chewing Tobacco Use: No Initiated information on smoking cessation: Yes 'Breaking Loose' booklet given: 04/13/17 - Substance & Tx. History Hx Alcohol Use: Yes Hx Substance Use: No Substance Use Type: Alcohol Hx Substance Use Treatment: Yes (02/19-02/22/17 [facility] - Substances Abused Alcohol Route: Oral Frequency: Daily Amount used: 7 [id number] Age of first use: 20 Date of Last Use: 04/13/17 Family Disease History - Family Disease History Family Disease History: Other: Father (POOR RELATIONSHIP WITH ), Brother, Sister (NO CONTACT) Admission Physical Exam S - Vital Signs Vital Signs: Vital Signs - 24 hr 04/13/17 16:01 Temperature 97 F L Pulse Rate 94 H Respiratory 20 Rate Blood Pressure 121/80 - Physical General Appearance: Yes: Appropriately Dressed, Moderate Distress, Alcohol on Breath, Thin, Tremorous, Irritable, Sweating, Anxious HEENTM: Yes: Hearing grossly Normal, Normal ENT Inspection, Normocephalic, Normal Voice Respiratory: Yes: Chest Non-Tender, Lungs Clear, Normal Breath Sounds, No Respiratory Distress, No Accessory Muscle Use Neck: Yes: Supple, Trachea in good position Breast: Yes: Breasts Symetrical Cardiology: Yes: Regular Rhythm, S1, S2, Tachycardia Abdominal: Yes: Non Tender, Soft, Increased Bowel Sounds Genitourinary: Yes: Within Normal Limits Back: Yes: Normal Inspection Musculoskeletal: Yes: full range of Motion, Gait Steady Extremities: Yes: Normal Inspection, Normal Range of Motion, Non-Tender, Tremors Neurological: Yes: Alert, Motor Strength 5/5, Normal Response, Depressed Affect Integumentary: Yes: Warm Lymphatic: Yes: Within Normal Limits - Diagnostic (1) Alcohol dependence with uncomplicated withdrawal Current Visit: Yes Status: Acute (2) Nicotine dependence Current Visit: Yes Status: Acute Qualifiers: Nicotine product type: cigarettes Substance use status: in withdrawal Qualified Code(s): F17.213 - Nicotine dependence, cigarettes, with withdrawal (3) GERD (gastroesophageal reflux disease) Current Visit: Yes Status: Chronic Qualifiers: Esophagitis presence: without esophagitis Qualified Code(s): K21.9 - Gastro-esophageal reflux disease without esophagitis (4) Depression (emotion) Current Visit: Yes Status: Suspected Qualifiers: Depression Type: dysthymia Qualified Code(s): F34.1 - Dysthymic disorder Cleared for Admission [facility] - Detox or Rehab [facility] Level of Care: Medically Managed Detox Regimen/Protocol: Librium [facility] Breath Alcohol Content Breath Alcohol Content: 0.299 Urine Drug Screen - Results Drug Screen Negative: Yes
[2017-04-13] MEDS ORDERED: chlordiazePOXIDE HCL 25 MG CAPSULE PO PRN (17:50)
[2017-04-13] MEDS ORDERED: hydrOXYzine PAMOATE 50 MG CAPSULE (FP) PO PRN (17:50)
[2017-04-13] MEDS ORDERED: MAGNESIUM CITRATE 300 ML BOTTLE PO PRN (17:50)
[2017-04-13] MEDS ORDERED: guaiFENesin/D-METHORPHAN HB 10 ML UNIT-DOSE CUPS PO PRN (17:50)
[2017-04-13] MEDS ORDERED: LOPERAMIDE HCL 2 MG CAPSULE PO PRN (17:50)
[2017-04-13] MEDS ORDERED: MAGNESIUM HYDROX 2400MG/30ML ORAL SUSPENSION 30 ML CUP PO PRN (17:50)
[2017-04-13] MEDS ORDERED: MAG HYDROX/AL HYDROX/SIMETH 30 ML UNIT-DOSE CUP PO PRN (17:50)
[2017-04-13] MEDS ORDERED: MENTHOL/PHENOL 1 EACH UD MM PRN (17:50)
[2017-04-13] MEDS ORDERED: NICOTINE POLACRILEX 2 MG GUM BC PRN (17:50)
[2017-04-13] MEDS ORDERED: P-EPHED 60MG/TRIPROLIDI 2.5MG TABLET PO PRN (17:50)
[2017-04-13] MEDS ORDERED: chlordiazePOXIDE HCL 25 MG CAPSULE PO ONE (18:15)
[2017-04-13] MEDS: THIAMINE HCL 100 MG TABLET (FP) PO SCH (22:15)
[2017-04-13] MEDS: chlordiazePOXIDE HCL 25 MG CAPSULE PO SCH (22:16)
[2017-04-13] MEDS: RANITIDINE HCL 150 MG TABLET (FP) PO SCH (22:16)
[2017-04-13] MEDS: diphenhydrAMINE HCL 50 MG CAPSULE PO PRN (22:16)
[2017-04-13 23:22] LABS: URINE APPEARANCE CLEAR; URINE BILIRUBIN NEGATIVE (NEGATIVE); URINE BLOOD NEGATIVE (NEGATIVE); URINE COLOR LTYELLOW; URINE GLUCOSE (UA) NEGATIVE (NEGATIVE); URINE KETONE TRACE (NEGATIVE); URINE LEUK ESTERASE NEGATIVE (NEGATIVE); URINE NITRITE NEGATIVE (NEGATIVE); URINE PROTEIN NEGATIVE (NEGATIVE)
[2017-04-14] MEDS: diphenhydrAMINE HCL 50 MG CAPSULE PO PRN ×2 (00:58→22:12)
[2017-04-14] MEDS: chlordiazePOXIDE HCL 25 MG CAPSULE PO SCH ×4 (05:59→22:12)
--- NOTE | 2017-04-14 09:16 | CONSULT ---
[facility] Psych[facility] Consult - Data Date of interview: 04/14/17 Identifying data: Mr Barth is a 41 years old male, father of 3 children, working in construction(insulation worker furnace installer), living in a rented room in [place] seeking detox treatment for alcohol Substance Abuse History: Reports that he started drinking alcohol at age 20, consumes 7x 40oz of beer daily. Last drink on 04/13/17 Medical History: Significant for history of surgery for removal of cyst back of his neck. Smokes 10 cigarettes daily Psychiatric History: Denies history of previous psychiatric treatment Physical/Sexual Abuse/Trauma History: Denies history of emotional, physical or sexual abuse as well as DV relationship Additional Comment: Denies criminal history Mental Status Exam - Mental Status Exam Alert and Oriented to: Time, Place, Person Cognitive Function: Fair Patient Appearance: Disheveled Mood: Hopeful, Euthymic Affect: Appropriate Patient Behavior: Cooperative Speech Pattern: Clear Voice Loudness: Normal Thought Process: Intact, Goal Oriented Hallucinations: Denies Suicidal Ideation: Denies Homicidal Ideation: Denies Insight/Judgement: Poor Sleep: Fair Appetite: Good Muscle strength/Tone: Normal Psychiatric Findings - Problem List ([facility] 1, 2,3) (1) Alcohol dependence with uncomplicated withdrawal Current Visit: Yes Status: Acute (2) Nicotine dependence Current Visit: Yes Status: Acute Qualifiers: Nicotine product type: cigarettes Substance use status: in withdrawal Qualified Code(s): F17.213 - Nicotine dependence, cigarettes, with withdrawal - Initial Treatment Plan Initial Treatment Plan: Continue inpatient detoxification
[2017-04-14] MEDS: PRENATAL VITAMINS W/ FOLIC ACID TABLET (FP) PO SCH (10:19)
[2017-04-14] MEDS: RANITIDINE HCL 150 MG TABLET (FP) PO SCH ×2 (10:19→22:12)
[2017-04-14] MEDS: NICOTINE 14 MG/24 HOURS TOPICAL PATCH TD SCH (10:19)
[2017-04-14 10:46] LABS: MCH 29.9 pg (25.7-33.7); MEAN CELL VOLUME 88.1 fl (80-96); MEAN PLT VOLUME 7.8 fl (7.5-11.1); PLATELET COUNT 109 K/MM3 (134-434); RDW 13.2 % (11.9-15.9); WHITE BLOOD COUNT 5.8 K/mm3 (4.0-10.0)
[2017-04-14 10:53] LABS: SGOT/AST 32 U/L (15-37); SGPT/ALT 31 U/L (12-78)
[2017-04-14 10:56] LABS: ALBUMIN 3.7 g/dl (3.4-5.0); ALK PHOS 73 U/L (45-117); ANION GAP 10 (8-16); BILIRUBIN,TOTAL 1.4 mg/dL (0.2-1.0); CALCIUM 8.6 mg/dL (8.5-10.1); CO2 31 mmol/L (21-32); CREATININE 0.7 mg/dL (0.7-1.3); GLUCOSE,RANDOM 81 mg/dL (74-106); TOT PROT 6.3 g/dl (6.4-8.2)
--- NOTE | 2017-04-14 14:12 | PN ---
[facility] CIWA - CIWA Score Nausea/Vomitin-Mild Nausea/No Vomiting Muscle Tremors: 3 Anxiety: 4-Mod. Anxious/Guarded Agitation: 2 Paroxysmal Sweats: 4-Forehead w/Sweat Beads Orientation: 2-Disoriented Date<2 days Tacttile Disturbances: 2-Mild Itch/Numbness/Burn Auditory Disturbances: 0-None Visual Disturbances: 0-None Headache: 0-None Present CIWA-Ar Total Score: 18 BHS Progress Note (SOAP) Subjective: Sweating, Tremors, Anxious. Objective: PT. A & O X 2 (DISORIENTED ABUT DAY / DATE). PT. OBSERVED AMBULATING ON UNIT. NO ACUTE DISTRESS. 04/14/17 14:13 Vital Signs Temperature 97.3 F L 04/14/17 14:12 Pulse Rate 68 04/14/17 14:12 Respiratory Rate 16 04/14/17 14:12 Blood Pressure 132/75 04/14/17 14:12 O2 Sat by Pulse Oximetry (%) Laboratory Tests 04/13/17 04/14/17 04/14/17 22:06 08:00 08:00 WBC 5.8 RBC 4.96 Hgb 14.9 Hct 43.7 MCV 88.1 MCH 29.9 MCHC 34.0 RDW 13.2 Plt Count 109 L D MPV 7.8 Sodium 139 Potassium 3.6 Chloride 98 Carbon Dioxide 31 Anion Gap 10 BUN 11 Creatinine 0.7 Creat Clearance w eGFR > 60 Random Glucose 81 Calcium 8.6 Total Bilirubin 1.4 H D AST 32 D ALT 31 D Alkaline Phosphatase 73 Total Protein 6.3 L Albumin 3.7 Urine Color Ltyellow Urine Appearance Clear Urine pH 6.0 Urine Protein Negative Urine Glucose (UA) Negative Urine Ketones Trace H Urine Blood Negative Urine Nitrite Negative Urine Bilirubin Negative Urine Urobilinogen 2.0 RPR Titer 04/14/17 08:00 WBC RBC Hgb Hct MCV MCH MCHC RDW Plt Count MPV Sodium Potassium Chloride Carbon Dioxide Anion Gap BUN Creatinine Creat Clearance w eGFR Random Glucose Calcium Total Bilirubin AST ALT Alkaline Phosphatase Total Protein Albumin Urine Color Urine Appearance Urine pH Urine Protein Urine Glucose (UA) Urine Ketones Urine Blood Urine Nitrite Urine Bilirubin Urine Urobilinogen RPR Titer Nonreactive LABS NOTED. Assessment: 04/14/17 14:13 WITHDRAWAL SYMPTOMS. Plan: CONTINUE DETOX. REPEAT BILIRUBIN LEVEL ON 04/16/2017 FOR ELEVATED ADMISSION LEVEL.
[2017-04-14] MEDS: ACETAMINOPHEN 325 MG TABLET (FP) PO PRN (17:23)
[2017-04-14] MEDS: THIAMINE HCL 100 MG TABLET (FP) PO SCH (22:12)
[2017-04-15] MEDS: diphenhydrAMINE HCL 50 MG CAPSULE PO PRN ×2 (00:37→23:38)
[2017-04-15] MEDS: chlordiazePOXIDE HCL 25 MG CAPSULE PO SCH ×3 (05:38→17:22)
[2017-04-15] MEDS: PRENATAL VITAMINS W/ FOLIC ACID TABLET (FP) PO SCH (10:10)
[2017-04-15] MEDS: NICOTINE 14 MG/24 HOURS TOPICAL PATCH TD SCH (10:10)
[2017-04-15] MEDS: RANITIDINE HCL 150 MG TABLET (FP) PO SCH ×2 (10:10→22:05)
[2017-04-15] MEDS: ACETAMINOPHEN 325 MG TABLET (FP) PO PRN (10:53)
--- NOTE | 2017-04-15 16:07 | PN ---
[facility] CIWA - CIWA Score Nausea/Vomitin Muscle Tremors: 2 Anxiety: 4-Mod. Anxious/Guarded Agitation: 4-Moderately Restless Paroxysmal Sweats: 3 Orientation: 0-Oriented Tacttile Disturbances: 1-Very Mild Itch/Numbness Auditory Disturbances: 0-None Visual Disturbances: 0-None Headache: 0-None Present CIWA-Ar Total Score: 17 BHS Progress Note (SOAP) Subjective: Anxious, restless, tremor, nausea, interrupted sleep. Patient requesting to leave tomorrow stating that he has to work tomorrow. Patient aware that his detox protocol will not be completed in order for him to be discharged tomorrow and he is encouraged to complete his detox protocol as ordered. Objective: 04/15/17 16:06 Last Vital Signs Temp Pulse Resp BP Pulse Ox 97.8 F 65 18 126/76 04/15/17 13:36 04/15/17 13:36 04/15/17 13:36 04/15/17 13:36 Laboratory Tests 04/13/17 04/14/17 04/14/17 22:06 08:00 08:00 WBC 5.8 RBC 4.96 Hgb 14.9 Hct 43.7 MCV 88.1 MCH 29.9 MCHC 34.0 RDW 13.2 Plt Count 109 L D MPV 7.8 Sodium 139 Potassium 3.6 Chloride 98 Carbon Dioxide 31 Anion Gap 10 BUN 11 Creatinine 0.7 Creat Clearance w eGFR > 60 Random Glucose 81 Calcium 8.6 Total Bilirubin 1.4 H D AST 32 D ALT 31 D Alkaline Phosphatase 73 Total Protein 6.3 L Albumin 3.7 Urine Color Ltyellow Urine Appearance Clear Urine pH 6.0 Ur Specific [place] 1.010 Urine Protein Negative Urine Glucose (UA) Negative Urine Ketones Trace H Urine Blood Negative Urine Nitrite Negative Urine Bilirubin Negative Urine Urobilinogen 2.0 RPR Titer 04/14/17 08:00 WBC RBC Hgb Hct MCV MCH MCHC RDW Plt Count MPV Sodium Potassium Chloride Carbon Dioxide Anion Gap BUN Creatinine Creat Clearance w eGFR Random Glucose Calcium Total Bilirubin AST ALT Alkaline Phosphatase Total Protein Albumin Urine Color Urine Appearance Urine pH Ur Specific [place] Urine Protein Urine Glucose (UA) Urine Ketones Urine Blood Urine Nitrite Urine Bilirubin Urine Urobilinogen RPR Titer Nonreactive Labs noted Assessment: 04/15/17 16:06 Withdrawal symptoms Plan: Continue detox
[2017-04-15] MEDS: THIAMINE HCL 100 MG TABLET (FP) PO SCH (22:05)
[2017-04-15] MEDS: chlordiazePOXIDE 5 MG CAPSULE PO SCH (22:05)
[2017-04-16] MEDS: diphenhydrAMINE HCL 50 MG CAPSULE PO PRN (01:23)
[2017-04-16] MEDS: chlordiazePOXIDE 5 MG CAPSULE PO SCH (05:08)
[2017-04-16 05:57] VITALS: BP 124/81; PULSE 59; TEMP 96.8
[2017-04-16] MEDS: RANITIDINE HCL 150 MG TABLET (FP) PO SCH (09:02)
[2017-04-16] MEDS: PRENATAL VITAMINS W/ FOLIC ACID TABLET (FP) PO SCH (09:02)
[2017-04-16] MEDS: NICOTINE 14 MG/24 HOURS TOPICAL PATCH TD SCH (09:03)
--- NOTE | 2017-04-16 10:59 | DS ---
[facility] Detox Discharge Summary Admission Date: 04/13/17 Discharge Date: 04/16/17 - History Present History: Alcohol Dependence Additional Comments: PATIENT HAS PERSONAL ISSUE TO ATTEND TO AND DOES NOT WISH TO STAY TO COMPLETE DETOX REGIMEN. PATIENT ADVISED TO GO IMMEDIATELY TO NEAREST ER SHOULD ANY INTOLERABLE DETOX SYMPTOMS DEVELOP AT ANY TIME. PATIENT LEFT UNIT IN STABLE MEDICAL CONDITION. Pertinent Past History: Depression, GERD, Nicotine dependence. - Physical Exam Results Vital Signs: Vital Signs Temperature 96.8 F L 04/16/17 05:56 Pulse Rate 59 L 04/16/17 05:56 Respiratory Rate 18 04/16/17 05:56 Blood Pressure 124/81 04/16/17 05:56 O2 Sat by Pulse Oximetry (%) Pertinent Admission Physical Exam Findings: WITHDRAWAL SYMPTOMS. Laboratory Tests 04/13/17 04/14/17 04/14/17 22:06 08:00 08:00 WBC 5.8 RBC 4.96 Hgb 14.9 Hct 43.7 MCV 88.1 MCH 29.9 MCHC 34.0 RDW 13.2 Plt Count 109 L D MPV 7.8 Sodium 139 Potassium 3.6 Chloride 98 Carbon Dioxide 31 Anion Gap 10 BUN 11 Creatinine 0.7 Creat Clearance w eGFR > 60 Random Glucose 81 Calcium 8.6 Total Bilirubin 1.4 H D AST 32 D ALT 31 D Alkaline Phosphatase 73 Total Protein 6.3 L Albumin 3.7 Urine Color Ltyellow Urine Appearance Clear Urine pH 6.0 Ur Specific [place] 1.010 Urine Protein Negative Urine Glucose (UA) Negative Urine Ketones Trace H Urine Blood Negative Urine Nitrite Negative Urine Bilirubin Negative Urine Urobilinogen 2.0 RPR Titer 04/14/17 08:00 WBC RBC Hgb Hct MCV MCH MCHC RDW Plt Count MPV Sodium Potassium Chloride Carbon Dioxide Anion Gap BUN Creatinine Creat Clearance w eGFR Random Glucose Calcium Total Bilirubin AST ALT Alkaline Phosphatase Total Protein Albumin Urine Color Urine Appearance Urine pH Ur Specific [place] Urine Protein Urine Glucose (UA) Urine Ketones Urine Blood Urine Nitrite Urine Bilirubin Urine Urobilinogen RPR Titer Nonreactive LABS NOTED. - Treatment Hospital Course: Detoxed Safely - Medication Discharge Medications: Ambulatory Orders NK [No Known Home Medication] 01/18/16 - Diagnosis (1) Alcohol dependence with uncomplicated withdrawal Status: Acute (2) Nicotine dependence Status: Chronic Qualifiers: Nicotine product type: cigarettes Substance use status: in withdrawal Qualified Code(s): F17.213 - Nicotine dependence, cigarettes, with withdrawal (3) GERD (gastroesophageal reflux disease) Status: Chronic Qualifiers: Esophagitis presence: without esophagitis Qualified Code(s): K21.9 - Gastro-esophageal reflux disease without esophagitis (4) Depression (emotion) Status: Suspected Qualifiers: Depression Type: dysthymia Qualified Code(s): F34.1 - Dysthymic disorder - AMA Did Patient Leave Against Medical Advice: Yes (PT. HAD PERSONAL ISSUE AND DID NOT WISH TO STAY TO COMPLETE DETOX REGIMEN.)
--- NOTE | 2017-04-16 17:03 | EKG ---
Test Reason : Blood Pressure : / mmHG Vent. Rate : 080 BPM Atrial Rate : 080 BPM P-R Int : 142 ms QRS Dur : 108 ms QT Int : 378 ms P-R-T Axes : 045 093 052 degrees QTc Int : 435 ms NORMAL SINUS RHYTHM BORDERLINE ECG WHEN COMPARED WITH ECG OF 19-FEB-2017 20:54, NO SIGNIFICANT CHANGE WAS FOUND Confirmed by JANELL PALMER MD ([id number]) on 04/16/2017 5:02:50 PM Referred By: Confirmed By:JANELL PALMER MD
[2017-04-16] MEDS ORDERED: chlordiazePOXIDE HCL 10 MG CAPSULE PO SCH (23:00)
== END 2017-04-16 09:13 | disposition left against medical advice (07) | DRG 770 ==
LOC: YASAS 15:02 → Y3N 18:04
PROVIDERS: ADMIT Internal Medicine; ATTEND Internal Medicine
PROC: HZ2ZZZZ Detoxification Services for Substance Abuse Treatment (ICD-10-PCS; principal; 2017-04-13)
DX: F10.230 Alcohol dependence with withdrawal, uncomplicated (principal); F17.213 Nicotine dependence, cigarettes, with withdrawal; F34.1 Dysthymic disorder; K21.9 Gastro-esophageal reflux disease without esophagitis
CPT/HCPCS: 36415; 80053; 81003; 85027; 86593; 93005; 93010

== ENCOUNTER 2017-05-29 19:50 | Inpatient (IN) | payer MEDICARE, OTHER ==
[2017-05-29 22:01] VITALS: BMI 23.6
--- NOTE | 2017-05-29 22:27 | HP ---
CIWA Score - CIWA Score Nausea/Vomitin-No Nausea/No Vomiting Muscle Tremors: 4-Moderate,w/Arms Extend Anxiety: 5 Agitation: 5 Paroxysmal Sweats: 2 Orientation: 1-Uncertain about Date Tacttile Disturbances: 0-None Auditory Disturbances: 2-Mild Harshness/Frighten Visual Disturbances: 2-Mild Sensitivity Headache: 2-Mild CIWA-Ar Total Score: 23 Admission ROS BHS - HPI Chief Complaint: C/O WITHDRAWALS X'S FROM ETOH DEPENDENCE Allergies/Adverse Reactions: Allergies Allergy/AdvReac Type Severity Reaction Status Date / Time No Known Allergies Allergy Verified 05/29/17 21:55 History of Present Illness: 41 Y.O. MALE WITH LONG HX/O ALCOHOLISM KNOWN TO [facility] DETOX HERE FOR ADMISSION. CLIENT DENIES ANY DETOX SINCE HIS LAST ADMISSION YEAR. DENIES ANY SIGNIFICANT PERIOD OF CLEAN TIME Exam Limitations: Intoxication - Ebola screening Have you traveled outside of the country in the last 21 days: No Have you had contact with anyone from an Ebola affected area: No Have you been sick,other than usual withdrawal symptoms: No Do you have a fever: No - Review of Systems Constitutional: Chills, Loss of Appetite, Night Sweats EENT: reports: No Symptoms Reported Respiratory: reports: No Symptoms reported Cardiac: reports: No Symptoms Reported GI: reports: Poor Appetite, Poor Fluid Intake : reports: No Symptoms Reported Musculoskeletal: reports: No Symptoms Reported Integumentary: reports: No Symptoms Reported Neuro: reports: No Symptoms reported Endocrine: reports: No Symptoms Reported Hematology: reports: No Symptoms Reported Psychiatric: reports: Agitated, Anxious, Depressed Other Systems: Reviewed and Negative Patient History - Patient Medical History Hx Anemia: No Hx Asthma: No Hx Chronic Obstructive Pulmonary Disease (COPD): No Hx Cancer: No Hx Cardiac Disorders: No Hx Congestive Heart Failure: No Hx Hypertension: No Hx Hypercholesterolemia: No Hx Pacemaker: No HX Cerebrovascular Accident: No Hx Seizures: No Hx Dementia: No Hx Diabetes: No Hx Gastrointestinal Disorders: Yes (GERD) Hx Liver Disease: No Hx Genitourinary Disorders: No Hx Sexually Transmitted Disorders: No Hx Renal Disease (ESRD): No Hx Thyroid Disease: No Hx Human Immunodeficiency Virus (HIV): No Hx Hepatitis C: No Hx Depression: Yes Hx Suicide Attempt: No Hx Bipolar Disorder: No Hx Schizophrenia: No Other Medical History: DENIES - Patient Surgical History Past Surgical History: Yes Hx Neurologic Surgery: No Hx Cataract Extraction: No Hx Cardiac Surgery: No Hx Lung Surgery: No Hx Breast Surgery: No Hx Breast Biopsy: No Hx Abdominal Surgery: No Hx Appendectomy: No Hx Cholecystectomy: No Hx Genitourinary Surgery: No Hx Section: No Hx Orthopedic Surgery: No Other Surgical History: removal of cyst, back of neck Anesthesia Reaction: No - PPD History Previous Implant?: Yes Documented Results: Negative w/proof Implanted On Prior [facility] Admission?: Yes Date: 04/15/17 Results: 0 mm PPD to be Administered?: No - Smoking Cessation Smoking history: Current every day smoker Have you smoked in the past 12 months: Yes Aproximately how many cigarettes per day: 10 Cigars Per Day: 0 Hx Chewing Tobacco Use: No Initiated information on smoking cessation: No 'Breaking Loose' booklet given: 05/29/17 - Substance & Tx. History Hx Alcohol Use: Yes Hx Substance Use: No Substance Use Type: Alcohol Hx Substance Use Treatment: Yes ([facility]) - Substances Abused Alcohol Route: Oral Frequency: Daily Amount used: beer- 2 six pack Age of first use: 20 Date of Last Use: 05/29/17 Family Disease History - Family Disease History Family Disease History: Other: Father (POOR RELATIONSHIP WITH ), Brother, Sister (NO CONTACT) Admission Physical Exam S - Vital Signs Vital Signs: Vital Signs - 24 hr 05/29/17 21:58 Temperature 96.4 F L Pulse Rate 106 H Respiratory 18 Rate Blood Pressure 127/87 - Physical General Appearance: Yes: Appropriately Dressed, Alcohol on Breath, Intoxicated, Tremorous, Irritable, Anxious HEENTM: Yes: EOMI, Normocephalic, JEN, Pharynx Normal Respiratory: Yes: Chest Non-Tender, Lungs Clear, Normal Breath Sounds, No Respiratory Distress, No Accessory Muscle Use Neck: Yes: No masses,lesions,Nodules, Supple, Trachea in good position Breast: Yes: Breast Exam Deferred Cardiology: Yes: Regular Rhythm, S1, S2, Tachycardia Abdominal: Yes: Normal Bowel Sounds, Non Tender, Soft Genitourinary: Yes: Within Normal Limits Back: Yes: Normal Inspection Musculoskeletal: Yes: full range of Motion, Gait Steady Extremities: Yes: Normal Capillary Refill, Normal Range of Motion, Non-Tender, Tremors Neurological: Yes: Alert, Motor Strength 5/5 Integumentary: Yes: Normal Color, Dry, Warm Lymphatic: Yes: Within Normal Limits - Diagnostic (1) Alcohol dependence with uncomplicated intoxication Current Visit: Yes Status: Chronic (2) GERD (gastroesophageal reflux disease) Current Visit: Yes Status: Chronic Qualifiers: Esophagitis presence: without esophagitis Qualified Code(s): K21.9 - Gastro-esophageal reflux disease without esophagitis; K21.9 - Gastro- esophageal reflux disease without esophagitis; K21.9 - Gastro-esophageal reflux disease without esophagitis (3) Nicotine dependence Current Visit: Yes Status: Chronic Qualifiers: Nicotine product type: cigarettes Substance use status: in withdrawal Qualified Code(s): F17.213 - Nicotine dependence, cigarettes, with withdrawal; F17.213 - Nicotine dependence, cigarettes, with withdrawal Cleared for Admission [facility] - Detox or Rehab [facility] Level of Care: Medically Managed Detox Regimen/Protocol: Librium [facility] Breath Alcohol Content Breath Alcohol Content: 0.462 Urine Drug Screen - Results Drug Screen Negative: Yes
[2017-05-29] MEDS ORDERED: guaiFENesin/D-METHORPHAN HB 10 ML UNIT-DOSE CUPS PO PRN (22:34)
[2017-05-29] MEDS ORDERED: MAG HYDROX/AL HYDROX/SIMETH 30 ML UNIT-DOSE CUP PO PRN (22:34)
[2017-05-29] MEDS ORDERED: MAGNESIUM HYDROX 2400MG/30ML ORAL SUSPENSION 30 ML CUP PO PRN (22:34)
[2017-05-29] MEDS ORDERED: LOPERAMIDE HCL 2 MG CAPSULE PO PRN (22:34)
[2017-05-29] MEDS ORDERED: NICOTINE POLACRILEX 2 MG GUM BC PRN (22:34)
[2017-05-29] MEDS ORDERED: MAGNESIUM CITRATE 300 ML BOTTLE PO PRN (22:34)
[2017-05-29] MEDS ORDERED: IBUPROFEN 400 MG TABLET (FP) PO PRN (22:34)
[2017-05-29] MEDS ORDERED: P-EPHED 60MG/TRIPROLIDI 2.5MG TABLET PO PRN (22:34)
[2017-05-29] MEDS ORDERED: MENTHOL/PHENOL 1 EACH UD MM PRN (22:34)
[2017-05-29] MEDS: chlordiazePOXIDE HCL 25 MG CAPSULE PO SCH (23:09)
[2017-05-29] MEDS: diphenhydrAMINE HCL 50 MG CAPSULE PO PRN (23:11)
[2017-05-29 23:19] LABS: URINE APPEARANCE CLEAR; URINE BILIRUBIN NEGATIVE (NEGATIVE); URINE BLOOD 1+ (NEGATIVE); URINE COLOR LTYELLOW; URINE GLUCOSE (UA) NEGATIVE (NEGATIVE); URINE KETONE NEGATIVE (NEGATIVE); URINE NITRITE NEGATIVE (NEGATIVE); URINE PROTEIN NEGATIVE (NEGATIVE)
[2017-05-29 23:28] LABS: URINE RBC <1 /hpf (0-3); URINE WBC 1 /hpf (3-5)
[2017-05-30] MEDS: chlordiazePOXIDE HCL 25 MG CAPSULE PO SCH ×4 (05:19→22:02)
[2017-05-30] MEDS: chlordiazePOXIDE HCL 25 MG CAPSULE PO PRN ×2 (08:38→13:30)
[2017-05-30] MEDS: ACETAMINOPHEN 325 MG TABLET (FP) PO PRN ×2 (08:38→16:59)
[2017-05-30 10:20] LABS: ALBUMIN 3.8 g/dl (3.4-5.0); ANION GAP 13 (8-16); CALCIUM 8.2 mg/dL (8.5-10.1); CO2 32 mmol/L (21-32); GLUCOSE,RANDOM 86 mg/dL (74-106)
[2017-05-30 10:23] LABS: MCH 29.8 pg (25.7-33.7); MCHC 34.5 g/dl (32.0-35.9); MEAN CELL VOLUME 86.3 fl (80-96); MEAN PLT VOLUME 7.6 fl (7.5-11.1); PLATELET COUNT 152 K/MM3 (134-434); RDW 13.3 % (11.9-15.9); WHITE BLOOD COUNT 9.3 K/mm3 (4.0-10.0)
[2017-05-30] MEDS: PRENATAL VITAMINS W/ FOLIC ACID TABLET (FP) PO SCH (10:23)
[2017-05-30] MEDS: NICOTINE 14 MG/24 HOURS TOPICAL PATCH TD SCH (10:23)
[2017-05-30 10:25] LABS: ALK PHOS 76 U/L (45-117); CREATININE 0.7 mg/dL (0.7-1.3); SGOT/AST 50 U/L (15-37); SGPT/ALT 35 U/L (12-78); TOT PROT 6.8 g/dl (6.4-8.2)
--- NOTE | 2017-05-30 12:12 | CONSULT ---
[facility] Psychiatric Consult - Data Date of interview: 05/30/17 Admission source: [facility] Identifying data: Readmission to [facility] for this 41 y/o [place]-born male seeking detox treatment on for alcohol dependence.Patient is ,a father of three,domiciled and currently employed in construction (installs floor tiles). Substance Abuse History: Mr Barth admits to heavy alcohol dependence as indicated in this [facility] report : Smoking history: Current every day smoker. Have you smoked in the past 12 months: Yes. Aproximately how many cigarettes per day: 10. Cigars Per Day: 0. Hx Chewing Tobacco Use: No. Initiated information on smoking cessation: No. 'Breaking Loose' booklet given: . - Substance & Tx. History. Hx Alcohol Use: Yes. Hx Substance Use: No. Substance Use Type: Alcohol. Hx Substance Use Treatment: Yes ([facility]). - Substances Abused. Alcohol. Route: Oral. Frequency: Daily. Amount used: beer- 2 six pack. Age of first use: 20. Date of Last Use: 05/29/17 Medical History: Patient endorses good general health. Psychiatric History: Patient denies. Physical/Sexual Abuse/Trauma History: Patient denies. Additional Comment: Drug Screen is negative. Mental Status Exam - Mental Status Exam Alert and Oriented to: Time, Place, Person Cognitive Function: Good Patient Appearance: Well Groomed (short stature) Mood: Hopeful, Euthymic Affect: Appropriate, Normal Range Patient Behavior: Fatigued, Appropriate, Cooperative Speech Pattern: Clear (communicates with broken beninese), Appropriate Voice Loudness: Normal Thought Process: Intact, Goal Oriented Thought Disorder: Not Present Hallucinations: Denies Suicidal Ideation: Denies Homicidal Ideation: Denies Insight/Judgement: Poor Sleep: Poorly, Difficulty falling asleep Appetite: Good Muscle strength/Tone: Normal Gait/Station: Normal Psychiatric Findings - Problem List ([place] 1, 2,3) (1) Alcohol dependence with uncomplicated withdrawal Current Visit: Yes Status: Acute (2) Nicotine dependence Current Visit: Yes Status: Acute Qualifiers: Nicotine product type: cigarettes Substance use status: in withdrawal Qualified Code(s): F17.213 - Nicotine dependence, cigarettes, with withdrawal; F17.213 - Nicotine dependence, cigarettes, with withdrawal (3) GERD (gastroesophageal reflux disease) Current Visit: Yes Status: Chronic Qualifiers: Esophagitis presence: without esophagitis Qualified Code(s): K21.9 - Gastro-esophageal reflux disease without esophagitis; K21.9 - Gastro- esophageal reflux disease without esophagitis; K21.9 - Gastro-esophageal reflux disease without esophagitis (4) Insomnia Current Visit: Yes Status: Acute - Initial Treatment Plan Initial Treatment Plan: Psychoeducation.Detoxification.Ambien 10 mg po hs prn.patient is made aware of potential for parassomnias.Agrees with this careplan.Observation.
--- NOTE | 2017-05-30 12:29 | PN ---
S CIWA - CIWA Score Nausea/Vomitin-No Nausea/No Vomiting Muscle Tremors: 3 Anxiety: 4-Mod. Anxious/Guarded Agitation: 2 Paroxysmal Sweats: 3 Orientation: 0-Oriented Tacttile Disturbances: 3-Moderate Itch/Numb/Burn Auditory Disturbances: 0-None Visual Disturbances: 0-None Headache: 3-Moderate CIWA-Ar Total Score: 18 BHS Progress Note (SOAP) Subjective: Sweating, H/A, Tremors. Objective: PT. A & OX 3, OBSERVED AMBULATING ON UNIT. NO ACUTE DISTRESS. PT. DENIES CHEST PAIN. 05/30/17 12:25 Vital Signs Temperature 95.8 F L 05/30/17 08:55 Pulse Rate 115 H 05/30/17 08:55 Respiratory Rate 20 05/30/17 08:55 Blood Pressure 136/76 05/30/17 08:55 O2 Sat by Pulse Oximetry (%) Laboratory Tests 05/29/17 05/30/17 05/30/17 Unknown 06:45 06:45 WBC 9.3 D RBC 5.51 Hgb 16.4 D Hct 47.5 MCV 86.3 MCH 29.8 MCHC 34.5 RDW 13.3 Plt Count 152 D MPV 7.6 Sodium 132 L Potassium 3.1 L Chloride 87 L D Carbon Dioxide 32 Anion Gap 13 BUN 11 Creatinine 0.7 Creat Clearance w eGFR > 60 Random Glucose 86 Calcium 8.2 L Total Bilirubin 2.0 H D AST 50 H D ALT 35 Alkaline Phosphatase 76 Total Protein 6.8 Albumin 3.8 Urine Color Ltyellow Urine Appearance Clear Urine pH 7.0 Ur Specific [place] 1.008 Urine Protein Negative Urine Glucose (UA) Negative Urine Ketones Negative Urine Blood 1+ H Urine Nitrite Negative Urine Bilirubin Negative Urine Urobilinogen 2.0 Urine RBC <1 Urine WBC 1 RPR Titer 05/30/17 06:45 WBC RBC Hgb Hct MCV MCH MCHC RDW Plt Count MPV Sodium Potassium Chloride Carbon Dioxide Anion Gap BUN Creatinine Creat Clearance w eGFR Random Glucose Calcium Total Bilirubin AST ALT Alkaline Phosphatase Total Protein Albumin Urine Color Urine Appearance Urine pH Ur Specific [place] Urine Protein Urine Glucose (UA) Urine Ketones Urine Blood Urine Nitrite Urine Bilirubin Urine Urobilinogen Urine RBC Urine WBC RPR Titer Nonreactive LABS NOTED. Assessment: 05/30/17 12:25 WITHDRAWAL SYMPTOMS. HYPOKALEMIA. 05/30/17 12:28 Plan: CONTINUE DETOX. INCREASE DAILY PO FLUID INTAKE. K-DUR, 20 MEQ PO X 1 NOW, THEN 20 MEQ PO BID.
[2017-05-30] MEDS ORDERED: POTASSIUM CHLORIDE TABS 20 MEQ TABLET.ER (FP) PO ONE (12:35)
--- NOTE | 2017-05-30 12:41 | EKG ---
Test Reason : Blood Pressure : / mmHG Vent. Rate : 093 BPM Atrial Rate : 093 BPM P-R Int : 128 ms QRS Dur : 102 ms QT Int : 362 ms P-R-T Axes : 078 099 044 degrees QTc Int : 450 ms NORMAL SINUS RHYTHM RIGHTWARD AXIS BORDERLINE ECG WHEN COMPARED WITH ECG OF 13-APR-2017 19:32, NO SIGNIFICANT CHANGE WAS FOUND Confirmed by ROM VARGHESE MD ([id number]) on 05/30/2017 12:41:05 PM Referred By: Confirmed By:ROM VARGHESE MD
[2017-05-30 14:53] LABS: URINE LEUK ESTERASE Negative (NEGATIVE)
[2017-05-30] MEDS: POTASSIUM CHLORIDE TABS 20 MEQ TABLET.ER (FP) PO SCH (16:59)
[2017-05-30] MEDS ORDERED: ZOLPIDEM TARTRATE 10 MG TABLET (PARK CARE ONLY) PO PRN (22:00)
[2017-05-30] MEDS: THIAMINE HCL 100 MG TABLET (FP) PO SCH (22:02)
[2017-05-31] MEDS: hydrOXYzine PAMOATE 50 MG CAPSULE (FP) PO PRN (00:36)
[2017-05-31] MEDS: chlordiazePOXIDE HCL 25 MG CAPSULE PO PRN ×2 (02:49→10:27)
[2017-05-31] MEDS: chlordiazePOXIDE HCL 25 MG CAPSULE PO SCH (05:05)
[2017-05-31] MEDS: PRENATAL VITAMINS W/ FOLIC ACID TABLET (FP) PO SCH (10:26)
[2017-05-31] MEDS: POTASSIUM CHLORIDE TABS 20 MEQ TABLET.ER (FP) PO SCH ×2 (10:27→17:12)
[2017-05-31] MEDS: NICOTINE 14 MG/24 HOURS TOPICAL PATCH TD SCH (10:27)
--- NOTE | 2017-05-31 11:44 | PN ---
[facility] CIWA - CIWA Score Nausea/Vomitin-No Nausea/No Vomiting Muscle Tremors: 2 Anxiety: 3 Agitation: 4-Moderately Restless Paroxysmal Sweats: 1-Minimal Palms Moist Orientation: 0-Oriented Tacttile Disturbances: 2-Mild Itch/Numbness/Burn Auditory Disturbances: 0-None Visual Disturbances: 0-None Headache: 0-None Present CIWA-Ar Total Score: 12 S Progress Note (SOAP) Subjective: SLIGHT ANXIETY,SWEATS. ALERT O X 3. Objective: 05/31/17 11:43 Vital Signs Temperature 98.1 F 05/31/17 09:15 Pulse Rate 100 H 05/31/17 09:15 Respiratory Rate 20 05/31/17 09:15 Blood Pressure 155/81 05/31/17 09:15 O2 Sat by Pulse Oximetry (%) Laboratory Last Values WBC 9.3 K/mm3 (4.0-10.0) D 05/30/17 06:45 RBC 5.51 M/mm3 (4.00-5.60) 05/30/17 06:45 Hgb 16.4 GM/dL (11.7-16.9) D 05/30/17 06:45 Hct 47.5 % (35.4-49) 05/30/17 06:45 MCV 86.3 fl (80-96) 05/30/17 06:45 MCH 29.8 pg (25.7-33.7) 05/30/17 06:45 MCHC 34.5 g/dl (32.0-35.9) 05/30/17 06:45 RDW 13.3 % (11.9-15.9) 05/30/17 06:45 Plt Count 152 K/MM3 (134-434) D 05/30/17 06:45 MPV 7.6 fl (7.5-11.1) 05/30/17 06:45 Sodium 132 mmol/L (136-145) L 05/30/17 06:45 Potassium 3.1 mmol/L (3.5-5.1) L 05/30/17 06:45 Chloride 87 mmol/L (98-107) L D 05/30/17 06:45 Carbon Dioxide 32 mmol/L (21-32) 05/30/17 06:45 Anion Gap 13 (8-16) 05/30/17 06:45 BUN 11 mg/dL (7-18) 05/30/17 06:45 Creatinine 0.7 mg/dL (0.7-1.3) 05/30/17 06:45 Creat Clearance w eGFR > 60 (>60) 05/30/17 06:45 Random Glucose 86 mg/dL (74-106) 05/30/17 06:45 Calcium 8.2 mg/dL (8.5-10.1) L 05/30/17 06:45 Total Bilirubin 2.0 mg/dL (0.2-1.0) H D 05/30/17 06:45 AST 50 U/L (15-37) H D 05/30/17 06:45 ALT 35 U/L (12-78) 05/30/17 06:45 Alkaline Phosphatase 76 U/L (45-117) 05/30/17 06:45 Total Protein 6.8 g/dl (6.4-8.2) 05/30/17 06:45 Albumin 3.8 g/dl (3.4-5.0) 05/30/17 06:45 Urine Color Ltyellow 05/29/17 Unknown Urine Appearance Clear 05/29/17 Unknown Urine pH 7.0 (5.0-8.0) 05/29/17 Unknown Ur Specific [place] 1.008 (1.001-1.035) 05/29/17 Unknown Urine Protein Negative (NEGATIVE) 05/29/17 Unknown Urine Glucose (UA) Negative (NEGATIVE) 05/29/17 Unknown Urine Ketones Negative (NEGATIVE) 05/29/17 Unknown Urine Blood 1+ (NEGATIVE) H 05/29/17 Unknown Urine Nitrite Negative (NEGATIVE) 05/29/17 Unknown Urine Bilirubin Negative (NEGATIVE) 05/29/17 Unknown Urine Urobilinogen 2.0 mg/dL (0.2-1.0) 05/29/17 Unknown Ur Leukocyte Esterase Negative (NEGATIVE) 05/29/17 Unknown Urine RBC <1 /hpf (0-3) 05/29/17 Unknown Urine WBC 1 /hpf (3-5) 05/29/17 Unknown RPR Titer Nonreactive (NONREACTIVE) 05/30/17 06:45 K+ =3.1 Assessment: 05/31/17 11:43 WITHDRAWAL SX HYPOKALEMIA. Plan: CONTINUE DETOX ON KDUR 20 MEQ PO BID
[2017-05-31] MEDS: chlordiazePOXIDE 5 MG CAPSULE PO SCH ×2 (17:12→22:02)
[2017-05-31] MEDS: diphenhydrAMINE HCL 50 MG CAPSULE PO PRN (22:02)
[2017-05-31] MEDS: THIAMINE HCL 100 MG TABLET (FP) PO SCH (22:02)
[2017-05-31] MEDS ORDERED: chlordiazePOXIDE 5 MG CAPSULE PO SCH (23:00)
[2017-06-01] MEDS: diphenhydrAMINE HCL 50 MG CAPSULE PO PRN (00:36)
[2017-06-01] MEDS: hydrOXYzine PAMOATE 50 MG CAPSULE (FP) PO PRN (02:15)
[2017-06-01] MEDS: chlordiazePOXIDE HCL 10 MG CAPSULE PO SCH ×2 (05:21→10:33)
[2017-06-01] MEDS: PRENATAL VITAMINS W/ FOLIC ACID TABLET (FP) PO SCH (09:34)
[2017-06-01] MEDS: POTASSIUM CHLORIDE TABS 20 MEQ TABLET.ER (FP) PO SCH (09:34)
[2017-06-01] MEDS: NICOTINE 14 MG/24 HOURS TOPICAL PATCH TD SCH (09:34)
[2017-06-01 10:12] VITALS: BP 125/77; PULSE 85; TEMP 98.4
--- NOTE | 2017-06-01 11:41 | DS ---
[facility] Detox Discharge Summary Admission Date: 05/29/17 Discharge Date: 06/01/17 - History Present History: Alcohol Dependence Additional Comments: DETOX COMPLETED. ALERT O X 3. PT REMINDED TO FOLLOW UP WITH PCP AT [facility] FOR MEDICAL MANAGEMENT. COPY OF LAB GIVEN TO PATIENT FOR REPEAT LAB RE: HYPOKALEMIA AND RX KDUR 20 MEQ PO DAILY X 5 DAYS SENT TO [facility] FOR PT PICKUP ON EXITING THIS BUILDING. Pertinent Past History: GERD HYPOKALEMIA - Physical Exam Results Vital Signs: Vital Signs Temperature 98.4 F 06/01/17 10:00 Pulse Rate 85 06/01/17 10:00 Respiratory Rate 18 06/01/17 10:00 Blood Pressure 125/77 06/01/17 10:00 O2 Sat by Pulse Oximetry (%) Pertinent Admission Physical Exam Findings: WITHDRAWAL SX Laboratory Last Values WBC 9.3 K/mm3 (4.0-10.0) D 05/30/17 06:45 RBC 5.51 M/mm3 (4.00-5.60) 05/30/17 06:45 Hgb 16.4 GM/dL (11.7-16.9) D 05/30/17 06:45 Hct 47.5 % (35.4-49) 05/30/17 06:45 MCV 86.3 fl (80-96) 05/30/17 06:45 MCH 29.8 pg (25.7-33.7) 05/30/17 06:45 MCHC 34.5 g/dl (32.0-35.9) 05/30/17 06:45 RDW 13.3 % (11.9-15.9) 05/30/17 06:45 Plt Count 152 K/MM3 (134-434) D 05/30/17 06:45 MPV 7.6 fl (7.5-11.1) 05/30/17 06:45 Sodium 132 mmol/L (136-145) L 05/30/17 06:45 Potassium 3.1 mmol/L (3.5-5.1) L 05/30/17 06:45 Chloride 87 mmol/L (98-107) L D 05/30/17 06:45 Carbon Dioxide 32 mmol/L (21-32) 05/30/17 06:45 Anion Gap 13 (8-16) 05/30/17 06:45 BUN 11 mg/dL (7-18) 05/30/17 06:45 Creatinine 0.7 mg/dL (0.7-1.3) 05/30/17 06:45 Creat Clearance w eGFR > 60 (>60) 05/30/17 06:45 Random Glucose 86 mg/dL (74-106) 05/30/17 06:45 Calcium 8.2 mg/dL (8.5-10.1) L 05/30/17 06:45 Total Bilirubin 2.0 mg/dL (0.2-1.0) H D 05/30/17 06:45 AST 50 U/L (15-37) H D 05/30/17 06:45 ALT 35 U/L (12-78) 05/30/17 06:45 Alkaline Phosphatase 76 U/L (45-117) 05/30/17 06:45 Total Protein 6.8 g/dl (6.4-8.2) 05/30/17 06:45 Albumin 3.8 g/dl (3.4-5.0) 05/30/17 06:45 Urine Color Ltyellow 05/29/17 Unknown Urine Appearance Clear 05/29/17 Unknown Urine pH 7.0 (5.0-8.0) 05/29/17 Unknown Ur Specific [place] 1.008 (1.001-1.035) 05/29/17 Unknown Urine Protein Negative (NEGATIVE) 05/29/17 Unknown Urine Glucose (UA) Negative (NEGATIVE) 05/29/17 Unknown Urine Ketones Negative (NEGATIVE) 05/29/17 Unknown Urine Blood 1+ (NEGATIVE) H 05/29/17 Unknown Urine Nitrite Negative (NEGATIVE) 05/29/17 Unknown Urine Bilirubin Negative (NEGATIVE) 05/29/17 Unknown Urine Urobilinogen 2.0 mg/dL (0.2-1.0) 05/29/17 Unknown Ur Leukocyte Esterase Negative (NEGATIVE) 05/29/17 Unknown Urine RBC <1 /hpf (0-3) 05/29/17 Unknown Urine WBC 1 /hpf (3-5) 05/29/17 Unknown RPR Titer Nonreactive (NONREACTIVE) 05/30/17 06:45 - Treatment Hospital Course: Detox Protocol Followed, Detoxed Safely, Responded well, Discharged Condition Good - Medication Discharge Medications: Ambulatory Orders Potassium Chloride [K-Dur -] 20 meq PO DAILY #5 meq 06/01/17 - Diagnosis (1) Alcohol dependence with uncomplicated withdrawal Status: Acute (2) Nicotine dependence Status: Acute Qualifiers: Nicotine product type: cigarettes Substance use status: in withdrawal Qualified Code(s): F17.213 - Nicotine dependence, cigarettes, with withdrawal; F17.213 - Nicotine dependence, cigarettes, with withdrawal (3) GERD (gastroesophageal reflux disease) Status: Chronic Qualifiers: Esophagitis presence: without esophagitis Qualified Code(s): K21.9 - Gastro-esophageal reflux disease without esophagitis; K21.9 - Gastro- esophageal reflux disease without esophagitis; K21.9 - Gastro-esophageal reflux disease without esophagitis (4) Hypokalemia Status: Acute - AMA Did Patient Leave Against Medical Advice: No
[2017-06-01] MEDS ORDERED: chlordiazePOXIDE HCL 10 MG CAPSULE PO SCH (23:00)
== END 2017-06-01 09:25 | disposition home or self-care (01) | DRG 775 ==
LOC: YASAS 19:50 → Y3N 22:18
PROVIDERS: ADMIT Internal Medicine; ATTEND Internal Medicine
PROC: HZ2ZZZZ Detoxification Services for Substance Abuse Treatment (ICD-10-PCS; principal; 2017-05-29)
DX: F10.230 Alcohol dependence with withdrawal, uncomplicated (principal); F17.210 Nicotine dependence, cigarettes, uncomplicated; K21.9 Gastro-esophageal reflux disease without esophagitis; G47.00 Insomnia, unspecified; E87.6 Hypokalemia
CPT/HCPCS: 36415; 80053; 81003; 81015; 85027; 86593; 93005; 93010